=== PATIENT | female | born 1960 | race Caucasian/White ===

== ENCOUNTER 2016-08-06 18:16 | Emergency (ER) | payer MEDICARE ==
[2016-08-06 19:09] LABS: BASOPHILS 0.3 % (0-2); EOSINOPHILS 1.5 % (0-7); HEMATOCRIT 43.6 % (36.0-48.0); HEMOGLOBIN 14.5 g/dL (12-16); IMMATURE GRANULOCYTES 0.2 % (0-5); LYMPHOCYTES 42.9 % (15-50); MCH 31.3 pg (26.0-34.0); MCHC 33.3 g/dL (31.0-37.0); MCV 94.2 fL (80.0-100.0); MEAN PLATELET VOLUME 9.3 fL (7.4-10.4); NEUTROPHILS 48.1 % (40-80); PLATELET COUNT 313 10x3/uL (130-400); RBC 4.63 10x6/uL (4.00-5.40); RDW 13.2 % (11.5-14.5); WBC 9.5 10x3/uL (4.8-10.8)
[2016-08-06 19:14] LABS: UDS - AMPHET NEGATIVE QUAL (NEGATIVE); UDS - BARB NEGATIVE QUAL (NEGATIVE); UDS - BENZO NEGATIVE QUAL (NEGATIVE); UDS - COCAINE NEGATIVE QUAL (NEGATIVE); UDS - METH NEGATIVE QUAL (NEGATIVE); UDS - OPIATE NEGATIVE QUAL (NEGATIVE); UDS - PCP NEGATIVE QUAL (NEGATIVE); UDS - THC NEGATIVE QUAL (NEGATIVE)
[2016-08-06 19:15] LABS: APPEARANCE CLOUDY (CLEAR); COLOR YELLOW (YELLOW); SPECIFIC GRAVITY 1.015 (1.005-1.020)
[2016-08-06 19:16] LABS: LEUKOCYTE ESTERASE TRACE (NEGATIVE); NITRITE NEGATIVE (NEGATIVE)
[2016-08-06 19:17] LABS: BILIRUBIN NEGATIVE (NEGATIVE); GLUCOSE NEGATIVE (NEGATIVE); KETONE NEGATIVE (NEGATIVE); PROTEIN 1+ mg/dL (NEGATIVE); UROBILINOGEN NORMAL (NORMAL)
[2016-08-06 19:19] LABS: RED CELLS - URINE 0-5 /hpf (0-5); WHITE CELLS - URINE 0-5 /hpf (0-5)
[2016-08-06 19:20] LABS: BACTERIA MODERATE /hpf (NONE SEEN); EPITHELIAL CELLS 0-5 /hpf (0-5)
[2016-08-06 19:21] LABS: HYALINE CAST 0-5 /lpf (NONE SEEN)
[2016-08-06 19:24] LABS: ANION GAP 15.9 mmol/L (8-16); BILIRUBIN - TOTAL 0.27 mg/dL (0.2-1.3); CREATININE - SERUM 0.9 mg/dL (0.6-1.3); POTASSIUM - SERUM 3.9 mmol/L (3.5-5.1); PROTEIN - SERUM 7.7 g/dL (6.4-8.2)
== END 2016-08-07 00:21 | disposition short-term general hospital (02) ==
LOC: D.ER 18:16
PROVIDERS: Emergency Medicine
DX: R45.851 Suicidal ideations (principal)

== ENCOUNTER 2016-11-27 13:20 | Emergency (ER) | payer MEDICARE ==
[2016-11-27 14:03] LABS: APPEARANCE HAZY (CLEAR); BILIRUBIN NEGATIVE (NEGATIVE); COLOR YELLOW (YELLOW); GLUCOSE NEGATIVE (NEGATIVE); KETONE NEGATIVE (NEGATIVE); NITRITE NEGATIVE (NEGATIVE); PROTEIN NEGATIVE (NEGATIVE); SPECIFIC GRAVITY 1.015 (1.005-1.020); UROBILINOGEN NORMAL (NORMAL)
[2016-11-27 14:07] LABS: BACTERIA MODERATE /hpf (NONE SEEN); MUCUS <1+ /lpf (NONE SEEN); RED CELLS - URINE 0-5 /hpf (0-5)
[2016-11-27 14:17] LABS: UDS - AMPHET NEGATIVE QUAL (NEGATIVE); UDS - BARB NEGATIVE QUAL (NEGATIVE); UDS - BENZO NEGATIVE QUAL (NEGATIVE); UDS - COCAINE NEGATIVE QUAL (NEGATIVE); UDS - OPIATE NEGATIVE QUAL (NEGATIVE); UDS - PCP NEGATIVE QUAL (NEGATIVE); UDS - THC NEGATIVE QUAL (NEGATIVE)
[2016-11-27 14:27] LABS: BASOPHILS 0.4 % (0-2); EOSINOPHILS 1.4 % (0-7); HEMATOCRIT 41.5 % (36.0-48.0); HEMOGLOBIN 14.2 g/dL (12-16); IMMATURE GRANULOCYTES 0.2 % (0-5); MCH 32.1 pg (26.0-34.0); MCHC 34.2 g/dL (31.0-37.0); MCV 93.7 fL (80.0-100.0); MEAN PLATELET VOLUME 8.6 fL (7.4-10.4); MONOCYTES 7.4 % (2-11); NEUTROPHILS 43.6 % (40-80); RBC 4.43 10x6/uL (4.00-5.40); RDW 12.9 % (11.5-14.5); WBC 8.4 10x3/uL (4.8-10.8)
[2016-11-27 14:28] LABS: PLATELET COUNT 386 10x3/uL (130-400)
[2016-11-27 14:50] LABS: ALBUMIN 3.8 g/dL (3.4-5.0); ALKALINE PHOSPHATASE 86 U/L (46-116); ALT (SGPT) 55 U/L (10-68); BILIRUBIN - TOTAL 0.27 mg/dL (0.2-1.3); CALC OSMOLALITY 259 mosm/kg (275-300); CALCIUM 9.1 mg/dL (8.5-10.1); CARBON DIOXIDE 26.3 mmol/L (21.0-32.0); CHLORIDE - SERUM 99 mmol/L (98-107); CREATININE - SERUM 0.7 mg/dL (0.6-1.3); GLUCOSE 118 mg/dL (74-106); POTASSIUM - SERUM 3.7 mmol/L (3.5-5.1); PROTEIN - SERUM 7.7 g/dL (6.4-8.2); SODIUM 130 mmol/L (136-145); UREA NITROGEN 7 mg/dL (7-18); eGFR NON AFRICAN AMERICAN > 90 mL/min (90-120)
[2017-03-18] MEDS ORDERED: DELSYM30 MG/5 M1 PO (07:16)
[2017-03-18] MEDS ORDERED: NEURONTIN800 MG PO (07:17)
[2017-03-18] MEDS ORDERED: ABILIFY10 MG PO (07:17)
[2017-03-18] MEDS ORDERED: SEROQUEL400 MG PO (07:17)
[2017-03-18] MEDS ORDERED: VASERETIC 10-251 TAB PO (07:18)
[2017-03-18] MEDS ORDERED: TOPROL XL50 MG PO (07:18)
[2017-03-18] MEDS ORDERED: KLONOPIN1 MG PO (07:19)
[2017-03-18] MEDS ORDERED: OMEPRAZOLE20 M1 PO (07:19)
[2017-03-18 07:56] VITALS: BMI 39.2
== END 2016-11-27 17:57 | disposition short-term general hospital (02) ==
LOC: D.ER 13:20
PROVIDERS: Emergency Medicine
DX: R45.851 Suicidal ideations (principal); F33.9 Major depressive disorder, recurrent, unspecified; N76.0 Acute vaginitis; F17.200 Nicotine dependence, unspecified, uncomplicated

== ENCOUNTER 2016-11-27 23:37 | Emergency (ER) | payer MEDICARE ==
[2016-11-28 00:22] LABS: BASOPHILS 0.2 % (0-2); EOSINOPHILS 1.3 % (0-7); HEMATOCRIT 43.4 % (36.0-48.0); HEMOGLOBIN 14.7 g/dL (12-16); IMMATURE GRANULOCYTES 0.5 % (0-5); LYMPHOCYTES 42.6 % (15-50); MCH 31.7 pg (26.0-34.0); MCHC 33.9 g/dL (31.0-37.0); MCV 93.5 fL (80.0-100.0); MEAN PLATELET VOLUME 9.5 fL (7.4-10.4); MONOCYTES 7.4 % (2-11); RBC 4.64 10x6/uL (4.00-5.40); RDW 12.9 % (11.5-14.5); WBC 8.4 10x3/uL (4.8-10.8)
[2016-11-28 00:23] LABS: PLATELET COUNT 147 10x3/uL (130-400)
[2016-11-28 00:33] LABS: ALBUMIN 3.6 g/dL (3.4-5.0); ALKALINE PHOSPHATASE 82 U/L (46-116); ALT (SGPT) 51 U/L (10-68); CALC OSMOLALITY 256 mosm/kg (275-300); CALCIUM 8.7 mg/dL (8.5-10.1); CARBON DIOXIDE 26.5 mmol/L (21.0-32.0); CHLORIDE - SERUM 95 mmol/L (98-107); CREATININE - SERUM 0.6 mg/dL (0.6-1.3); GLUCOSE 113 mg/dL (74-106); POTASSIUM - SERUM 4.3 mmol/L (3.5-5.1); PROTEIN - SERUM 7.3 g/dL (6.4-8.2); SODIUM 128 mmol/L (136-145); UREA NITROGEN 9 mg/dL (7-18); eGFR NON AFRICAN AMERICAN > 90 mL/min (90-120)
[2016-11-28 00:40] LABS: CKMB 0.7 U/L (0.0-3.6); CREATINE KINASE 158 UL (21-215)
[2016-11-28 00:41] LABS: TROPONIN-I < 0.017 ng/mL (0.000-0.060)
[2016-11-28 02:07] LABS: APPEARANCE CLEAR (CLEAR); COLOR YELLOW (YELLOW)
[2016-11-28 02:08] LABS: BILIRUBIN NEGATIVE (NEGATIVE); GLUCOSE NEGATIVE (NEGATIVE); KETONE NEGATIVE (NEGATIVE); NITRITE NEGATIVE (NEGATIVE); PROTEIN NEGATIVE (NEGATIVE); SPECIFIC GRAVITY 1.005 (1.005-1.020); UROBILINOGEN NORMAL (NORMAL)
[2017-03-18] MEDS ORDERED: DELSYM30 MG/5 M1 PO (07:16)
[2017-03-18] MEDS ORDERED: ABILIFY10 MG PO (07:17)
[2017-03-18] MEDS ORDERED: SEROQUEL400 MG PO (07:17)
[2017-03-18] MEDS ORDERED: NEURONTIN800 MG PO (07:17)
[2017-03-18] MEDS ORDERED: VASERETIC 10-251 TAB PO (07:18)
[2017-03-18] MEDS ORDERED: TOPROL XL50 MG PO (07:18)
[2017-03-18] MEDS ORDERED: KLONOPIN1 MG PO (07:19)
[2017-03-18] MEDS ORDERED: OMEPRAZOLE20 M1 PO (07:19)
[2017-03-18 07:56] VITALS: BMI 39.2
== END 2016-11-28 06:09 | disposition home or self-care (01) ==
LOC: D.ER 23:37
PROVIDERS: Family Medicine
DX: I95.9 Hypotension, unspecified (principal); Z76.0 Encounter for issue of repeat prescription; F17.200 Nicotine dependence, unspecified, uncomplicated; I44.0 Atrioventricular block, first degree

== ENCOUNTER 2017-03-18 07:34 | Outpatient (CLI) | payer MEDICARE ==
[~2017-03-18] VITALS: Ht 170.2 cm; Wt 113.6 kg
--- NOTE | ~2017-03-18 | HEMODYNAMI ---
PATIENT:ANDERSON LITTLE MEDICAL RECORD: [id number] : 64 LOCATION:[facility] ADMISSION DATE: 03/18/17 Generatedon:03/18/20179:06 Patient name: ANDERSON LITTLE Patient #: [id number] SSN: DO B: 1960 Date of study: 03/18/2017 Page: Of Hemodynamic Procedure Report Patient Data Patient Demographics Procedure consent was obtained First Name: ANDERSON Gender: Female Last Name: ANABEL : 1960 [facility] Initial: L Age: 56 year(s) Patient #: [id number] Race: Additional ID: [id number] Contact details Address: [address] [place] [address] State: [place] City: [facility] Zip code: [address] Past Medical History Allergies: No known allergies Admission Admission Data Admission Date: 03/18/2017 Admission Time: 7:34 Arrival Date: 03/18/2017 Arrival Time: 0:00 Admit Source: Other Procedure Procedure Types Cath Procedure Diagnostic Procedure C LH w/Coronaries Miscellaneous Procedures Moderate Sedation up to 30 minutes Procedure Description Procedure Date Procedure Date: 03/18/2017 Procedure Start Time: 8:53 Procedure End Time: 9:06 Procedure Staff Name Function Kevin Hernandez MD Performing Physician Genevieve Harris RT Scrub Yelena Price RT Monitor Ti Jj RN Nurse Procedure Data Cath Procedure Fluoroscopy Diagnostic fluoroscopy Total fluoroscopy Time: 1.7 time: 1.7 min min Diagnostic fluoroscopy Total fluoroscopy dose: 362 dose: 362 mGy mGy Contrast Material Contrast Material Type Amount (ml) Isovue 300 39 Entry Location Entry Primary Successful Side Size Upsize Upsize Entry Closure Succes sful Closure Location (Fr) 1 (Fr) 2 (Fr) Remarks Device Remarks Femoral Right 5 Fr Exoseal artery Estimated blood loss: 5 ml Diagnostic catheters Device Type Used For End Catheter Placement MULTIPACK JL 4.0 5Fr Left Coronary catheter Angiography MULTIPACK 3DRC 5Fr Right Coronary catheter Angiography MULTIPACK Pigtail 5 Fr LV Angiography catheter Procedure Complications No complications Procedure Medications Medication Administration Route Dosage 0.9% NaCl I.V. 100 ml/hr Heparin Flush Bag added to field 2 bags (1000units/500ml NS) Lidocaine 2% added to field 20 Versed I.V. 2 mg Fentanyl I.V. 25 mcg Hemodynamics Rest Heart Rate: 73 (bpm) Pressure Samples Time Site Value (mmHg) Purpose Heart Use Rate(bpm) 9:01 LV 117/7,22 EDP 74 Gradients Valve Time Site Site Mean SEP/DFP Peak To Heart Use 1 2 (mmHg) (sec/min) Peak Rate (mmHg) (bpm) Aortic 9:01 LV AO 82 Snapshots Pre Cath Intra NCS Post Cath Vital Signs Time Heart Resp SPO2 etCO2 NIBP (mmHg) Rhythm Pain Sedation Rate (ipm) (%) (mmHg) Status Level (bpm) 8:41:43 72 20 98 35.7 137/84(110) NSR 0 (11) 10(A) , No pain 8:46:36 71 17 96 37.2 135/82(116) NSR 0 (11) 10(A) , No pain 8:51:24 73 17 96 43.3 124/88(104) NSR 0 (11) 10(A) , No pain 8:56:13 73 12 93 0 118/73(90) NSR 0 (11) 9(A) , No pain 9:01:04 74 12 93 3 116/65(87) NSR 0 (11) 9(A) , No pain 9:05:53 73 10 92 0 120/71(91) NSR 0 (11) 9(A) , No pain Medications Time Medication Route Dose Verified Delivered Reason Notes Effec tiveness by by 8:40:42 0.9% NaCl I.V. 100 Ti Ti Per ml/hr Анна Jj physician RN RN 8:44:01 Heparin Flush added 2 Ti Ti used for Bag to bags Анна Jj procedure (1000units/500ml field RN RN NS) 8:44:14 Lidocaine 2% added 20ml Ti Ti for local to vial Lorigan Lorigan anesthetic field RN RN 8:49:00 Versed I.V. 2 mg Ti Ti for Lorigan Lorigan sedation RN RN 8:49:10 Fentanyl I.V. 25 Ti Ti for mcg Lorigan Lorigan sedation RN cryptography teacher Log Time Note 8:26:20 Yelena Price RT(R) sent for patient. Start room use. 8:26:21 Time tracking: Regular hours 8:26:24 Plan of Care:Hemodynamics will remain stable., Cardiac rhythm will remain stable., Comfort level will be maintained., Respiratory function will remain adequate., Patient/ family verbilizes understanding of procedure., Procedure tolerated without complication., Recovers from procedure without complications.. 8:30:20 Diagnostic Cath Status : Elective 8::26 Informed consent obtained and on chart 8:30:30 Admit Source: Other 8:30:34 Arrival Date: 03/18/2017 12:00:00 AM 8:33:11 Patient received from Pre/Post Procedure Room to CCL 1 Alert and oriented. Tansferred to table in Supine position. 8:33:13 Warm blankets applied, and monico hugger turned on for patient comfort. 8:33:14 Correct patient and procedure confirmed by team. 8:33:15 ECG and BP/O2 sat monitors applied to patient. 8:40:38 Vital chart was started 8:40:40 Rhythm: sinus rhythm 8:40:42 0.9% NaCl 100 ml/hr I.V. was administered by Ti Jj RN; Per physician; 8:41:05 Full Disclosure recording started 8:41:14 H&P Date Dictated: 03/10/2017 Within 30 days and on chart., H&P Addendum completed by physician on day of procedure. (MUST COMPLETE FOR ALL OUTPATIENTS). 8:41:15 Pre-procedure instructions explained to patient. 8:41:15 Pre-op teaching completed and patient verbalized understanding. 8:41:16 Family in waiting room. 8:41:18 Patient NPO since Midnight. 8:41:27 Patient allergic to No known allergies 8:41:30 Is the patient allergic to Iodine/contrast media? No. 8:41:35 Is patient on blood thinner?Yes 8:41:36 ACC The patient was administered the following blood thiners within the last 24 hours: ACCPlavix 8:41:38 Patient diabetic? No. 8:41:40 Previous problem with sedation/anesthesia? No ? 8:41:41 Snore? No 8:41:42 Sleep apnea? No 8:41:43 Deviated septum? No 8:41:44 Opens mouth fully? Yes 8:41:45 Sticks out tongue? Yes 8:41:46 Airway obstruction? No ? 8:41:48 Dentures? No ? 8:41:50 Pre procedure: right dorsailis pedis pulse 1+ Palpable, but thready & weak; easily obliterated 8:42:01 Pre procedure: right radial pulse 1+ Palpable, but thready & weak; easily obliterated 8:42:04 Patient pain scale 0/10 ?. 8:42:07 IV patent on arrival in left hand with 0.9% NaCl at [facility]. 8:42:09 Lab results completed and on chart. 8:42:14 Right groin area was prepped with chlora-prep and draped in sterile fashion 8:42:15 Alarms reviewed by R. N. 8:42:16 Sharps counted by scrub and verified by R.N. 8:44:01 Heparin Flush Bag (1000units/500ml NS) 2 bags added to field was administered by Ti Jj RN; used for procedure; 8:44:14 Lidocaine 2% 20ml vial added to field was administered by Ti Jj RN; for local anesthetic; 8:45:22 Final Timeout: patient, procedure, and site verified with staff and physician. All members of the team are in agreement. 8:45:24 Right groin site verified by team. 8:45:27 Physical assessment completed. ASA score P 2 - A patient with mild systemic disease as per Kevin Hernandez MD. 8:45:30 Sedation plan: IV Moderate Sedation Medication:Versed, Fentanyl 8:48:01 Baseline sample Acquired. 8:49:00 Versed 2 mg I.V. was administered by Ti Jj RN; for sedation; 8:49:10 Fentanyl 25 mcg I.V. was administered by Ti Jj RN; for sedation; 8:52:10 Zero performed for pressure channel P1 8:52:26 Zero performed for pressure channel P1 8:52:59 Procedure started. 8:53:02 Local anesthetic to right femoral artery with Lidocaine 2% by Kevin Hernandez MD.INITIAL ACCESS ONLY 8:54:49 A 5 Fr sheath was inserted into the Right Femoral artery 8:56:04 Use device set Femoral Dx 8:56:05 ACIST Syringe (16932) opened to sterile field. 8:56:06 Bag Decanter (2002S) opened to sterile field. 8:56:06 Medline Cath Pack ([id number]) opened to sterile field. 8:56:06 SHEATH 5FR Vansant ([id number]) opened to sterile field. 8:56:07 DIAGNOSTIC WIRE .035 260cm J wire (301587) opened to sterile field. 8:56:08 ACIST Hand Control (66108) opened to sterile field. 8:56:09 ACIST Manifold (54015) opened to sterile field. 8:56:09 DIAGNOSTIC Multipack 5Fr catheter set (WQ3759) opened to sterile field. 8:56:10 Tegaderm 4 x 4 (1626W) opened to sterile field. 8:56:14 MICROPUNCTURE 4FR CrowdStrike ([id number]) opened to sterile field. 8:56:19 A MULTIPACK JL 4.0 5Fr catheter was advanced over the wire and used for Left Coronary Angiography. 8:57:55 Catheter removed. 8:58:29 A MULTIPACK 3DRC 5Fr catheter was advanced over the wire and used for Right Coronary Angiography. 8:59:22 Catheter removed. 8:59:30 A MULTIPACK Pigtail 5 Fr catheter was advanced over the wire and used for LV Angiography. 9:01:20 LV gram done using RUFFIN 9:01:21 LV hemodynamics recorded. 9:01:24 Injector settings: Ml/sec: 12, Volume: 8, 9:01:53 Catheter removed. 9:02:00 Sheath removed intact; hemostasis achieved with Exoseal to the Right Femoral artery. 9:02:02 Procedure ended.(Physican Out) 9:02:13 EXOSEAL 5Fr (EX500) opened to sterile field. 9:04:07 Fluoroscopy time 01.70 minutes. 9:04:13 Fluoroscopy dose: 362 mGy 9:04:13 Flurop Dose total: 362 9:04:17 Contrast amount:Isovue 300 39ml. 9:04:19 Sharps counted by scrub and verified by R.N. 9:04:20 Insertion/operative site no bleeding no hematoma. 9:04:23 Post-op/insertion site Right Femoral artery dressed using a 4 x 4 and Tegaderm. 9:04:26 Post right femoral artery:stable, clean and dry 9:04:28 Post Procedure Pulses reassessed and unchanged 9:04:31 Post-procedure physical assessment completed. ASA score P 2 - A patient with mild systemic disease as per Kevin Hernandez MD. 9:04:33 Post procedure rhythm: unchanged. 9:04:35 Estimated blood loss: 5 ml 9:04:36 Post procedure instruction explained to patient.Patient verbalizes understanding. 9:04:37 Patient needs reinforcement of post procedure teaching. 9:04:49 Procedure type changed to Cath procedure, Diagnostic procedure, LHC, LHC w/Coronaries, Miscellaneous Procedures, Moderate Sedation up to 30 minutes 9:04:55 Procedure Complication : No complications 9:04:57 See physician's report for complete and final results. 9:05:21 Procedure and supply charges have been captured, reviewed, submitted and are correct. 9:06:26 Vital chart was stopped 9:06:28 Report given to Pre/Post Procedure Room. 9:06:30 Patient transfered to Pre/Post Procedure Room with Stretcher. 9:06:38 Procedure ended. 9:06:38 Full Disclosure recording stopped 9:06:42 End room use (Document Last) Device Usage Item Name Manufacture Quantity Catalog Hospital Part Current Minimal Lot# / Number Charge Number Stock Stock Serial# Code ACIST Syringe Acist 1 85782 579876 394006 653035 20 (96455) Medical Systems Inc Bag Decanter Microtek 1 2001S 968768 42184 710265 5 () Medical Inc. Medline Cath Cardinal 1 [id number] 806838 01204 883916 5 Pack Health ([id number]) SHEATH 5FR Terumo 1 HHX685 279456 885068 915238 40 Vansant (BKZ166) DIAGNOSTIC St Armin 1 726444 400553 348702 381018 30 WIRE .035 260cm J wire (837902) ACIST Hand Acist 1 72323 556204 697735 982513 5 Control Medical (98385) Systems Inc ACIST Acist 1 73178 069115 343713 871001 5 Manifold Medical (66889) Systems Inc DIAGNOSTIC Cardinal 1 PG4841 436350 96755 645171 30 Multipack 5Fr Health catheter set (EH2211) Tegaderm 4 x 3M 1 1626W 086400 223848 080915 5 4 (1626W) MICROPUNCTURE Cook Medical 1 X82592 159395 131258 899689 5 4FR Cook (B79748) MULTIPACK JL Cardinal 1 139956 5 4.0 5Fr Health catheter MULTIPACK Cardinal 1 647595 5 3DRC 5Fr Health catheter MULTIPACK Cardinal 1 448996 5 Pigtail 5 Fr Health catheter EXOSEAL 5Fr Cardinal 1 EX500 559735 894635 741599 10 (EX500) Health Signature Audit Aurora Stage Time Signature Unsigned Intra-Procedure 03/18/2017 Yelena 9:06:55 AM Counts RT(R) Signatures Monitor : Yelena Signature : Counts RT Date : Time : [address] [address]
[~2017-03-18 07:34] MED LIST: ABILIFY10 MG PO; DELSYM30 MG/5 M1 PO; KLONOPIN1 MG PO; NEURONTIN800 MG PO; OMEPRAZOLE20 M1 PO; SEROQUEL400 MG PO; TOPROL XL50 MG PO; VASERETIC 10-251 TAB PO
[2017-03-18 07:54] LABS: BASOPHILS 0.2 % (0-2); EOSINOPHILS 1.6 % (0-7); HEMATOCRIT 41.9 % (36.0-48.0); HEMOGLOBIN 14.3 g/dL (12-16); IMMATURE GRANULOCYTES 0.2 % (0-5); LYMPHOCYTES 39.4 % (15-50); MCH 32.1 pg (26.0-34.0); MCHC 34.1 g/dL (31.0-37.0); MCV 93.9 fL (80.0-100.0); MEAN PLATELET VOLUME 8.4 fL (7.4-10.4); NEUTROPHILS 51.6 % (40-80); RBC 4.46 10x6/uL (4.00-5.40); RDW 12.5 % (11.5-14.5); WBC 9.4 10x3/uL (4.8-10.8)
[2017-03-18 07:56] VITALS: BP 132/84; Ht 170.2 cm; Wt 113.6 kg
[2017-03-18 08:04] LABS: CALC OSMOLALITY 259 mosm/kg (275-300); CALCIUM 9.6 mg/dL (8.5-10.1); CARBON DIOXIDE 30.9 mmol/L (21.0-32.0); CHLORIDE - SERUM 92 mmol/L (98-107); CREATININE - SERUM 0.8 mg/dL (0.6-1.3); GLUCOSE 123 mg/dL (74-106); POTASSIUM - SERUM 3.8 mmol/L (3.5-5.1); SODIUM 130 mmol/L (136-145); UREA NITROGEN 8 mg/dL (7-18); eGFR NON AFRICAN AMERICAN 79 mL/min (90-120)
[2017-03-18 08:07] LABS: PLATELET COUNT 333 10x3/uL (130-400)
== END 2017-03-18 12:25 | disposition home or self-care (01) ==
LOC: D.CATH 07:34
PROVIDERS: Internal Medicine Cardiovascular Disease
DX: I25.10 Atherosclerotic heart disease of native coronary artery without angina pectoris (principal); R94.39 Abnormal result of other cardiovascular function study; Z01.812 Encounter for preprocedural laboratory examination

== ENCOUNTER 2017-05-07 08:20 | Day surgery (SDC) | payer MEDICARE ==
[2017-05-06 13:03] LABS: HEMATOCRIT 40.3 % (36.0-48.0); HEMOGLOBIN 13.5 g/dL (12-16); MCH 31.3 pg (26.0-34.0); MCHC 33.5 g/dL (31.0-37.0); MCV 93.3 fL (80.0-100.0); MEAN PLATELET VOLUME 8.4 fL (7.4-10.4); RBC 4.32 10x6/uL (4.00-5.40); WBC 8.1 10x3/uL (4.8-10.8)
[2017-05-06 13:20] LABS: CALC OSMOLALITY 263 mosm/kg (275-300); CALCIUM 9.1 mg/dL (8.5-10.1); CARBON DIOXIDE 26.2 mmol/L (21.0-32.0); CHLORIDE - SERUM 94 mmol/L (98-107); CREATININE - SERUM 0.7 mg/dL (0.6-1.3); GLUCOSE 116 mg/dL (74-106); POTASSIUM - SERUM 3.8 mmol/L (3.5-5.1); SODIUM 132 mmol/L (136-145); UREA NITROGEN 8 mg/dL (7-18); eGFR NON AFRICAN AMERICAN > 90 mL/min (90-120)
[~2017-05-07] VITALS: Ht 170.2 cm; Wt 113.6 kg
--- NOTE | ~2017-05-07 | OP ---
PATIENT NAME: ANDERSON LITTLE MEDICAL RECORD: [id number] :64 LOCATION:D.[id number] ADMISSION DATE: SURGEON: INNA MARTINES MD DATE OF OPERATION: 05/07/2017 PREOPERATIVE DIAGNOSIS: Symptomatic umbilical hernia. POSTOPERATIVE DIAGNOSES: 1. Symptomatic incarcerated umbilical hernia. 2. Hepatomegaly, rule out fatty infiltration versus cirrhosis. PROCEDURES: 1. Laparoscopic incarcerated umbilical hernia repair with Ventralight ST mesh, 4 inches x 6 inches. 2. An 18-gauge core needle liver biopsy. SURGEON: Inna Martines MD PHOTOLITHOGRAPHER: None. BLOOD LOSS: Minimal. ANESTHESIA: General. COMPLICATIONS: None. The risks, possible complications and alternatives to the procedure were explained to the patient. She elects to proceed. OPERATIVE COURSE: The patient was conveyed to the operating room electively on 05/07/2017. General anesthesia was induced by the anesthesia staff. The abdomen was sterilely prepped and draped. A skin incision was accomplished in the left upper quadrant. Through the skin incision, I advanced a Veress needle. CO2 insufflation was begun. Once a sufficient pneumoperitoneum had been achieved, a 5-mm trocar was inserted under direct vision in the left lower quadrant. Two 5-mm trocars were inserted under direct vision in the right side of the abdomen. I noted incarcerated omentum within the umbilical hernia. The indication for the liver biopsy was hepatomegaly. Under laparoscopic guidance, I advanced an 18-gauge core needle liver biopsy device and obtained cores of the liver over its convexity. The biopsy sites were made hemostatic with the electrocautery. Utilizing the Harmonic scalpel, I took down the falciform ligament. I then took down the anterior portion of the triangular ligament of the liver. I then removed some of the preperitoneal fat with the Harmonic scalpel. I reduced the umbilical hernia contents with the Harmonic scalpel. A pre-vesicular flap was created with the Harmonic scalpel. Intravenous methylene blue was given. I noted no spillage of methylene blue and therefore, no evidence of a bladder injury. Through the 12-mm trocar, I advanced a well-hydrated Ventralight ST mesh. An incision was accomplished over the hernia defect. I advanced a laparoscopic suture passer through this small skin manas. I grasped the tail of the Ventralight ST mesh. I cut the tubing, attached it to the inflation device and then inflated the mesh. I then oriented it in the proper orientation with the OPERATIVE REPORT [id number] ANDERSON LITTLE long axis being in the cephalad caudad direction. Utilizing the OptiFix device, I tacked around the edges of the mesh in order to stabilize it. The herniorrhaphy was then completed with circumferential tacking utilizing the SorbaFix device. The inflation device was removed in its entirety. There was no bleeding even at low pressure of 8. Utilizing the Shelton-Deanna suture closure device and a 0 Vicryl suture, I closed the muscle at the 12-mm trocar site. All the trocars were removed and the abdomen desufflated. The skin incision at the umbilicus was closed with a single 4-0 Vicryl Rapide suture. The other skin incisions were closed with interrupted intracuticular 3-0 and 4-0 Vicryls. Benzoin and Steri-Strips were applied as well as pressure dressing at the umbilicus. The patient was then extubated and conveyed to the post-anesthesia care unit where she was in stable condition. My plan is that she will be dismissed home on hydrocodone as well as Colace. I will see her in the office in 2-3 weeks. TRANSINT:[id number] Voice Confirmation ID: [id number] DOCUMENT ID: [id number] INNA MARTINES MD at 1607 CC: LORENZO MANNING [id number] DICTATION DATE: 05/07/17 1258 STRUCTURAL ANALYSIS ENGINEER: 05/07/17 [address] [place] [address]
[2017-05-07 09:14] VITALS: BP 113/71; BMI 39.2
[2017-05-07 11:27] LABS: HCG SERUM NEGATIVE (NEGATIVE)
[2017-05-07 15:50] VITALS: BP 112/56
[2017-05-07 17:07] VITALS: BP 112/56; Ht 170.2 cm; Wt 113.6 kg
[2017-05-07 23:02] VITALS: BP 113/72
[2017-05-08 02:45] VITALS: BP 130/78
[2017-05-08 04:32] VITALS: BP 132/79
[2017-05-08 08:20] VITALS: BP 153/69
[2017-05-08] MEDS ORDERED: HYDROCODON-ACE1 EAC7 PO (11:11)
[2017-05-08] MEDS ORDERED: COLACE100 MG PO (11:12)
== END 2017-05-08 14:07 | disposition home or self-care (01) ==
LOC: D.OPS 08:20 → D.MS 08:20 → D.PAN 10:15 → D.OPS 11:30 → D.MS 15:10 → D.OPS 05-08 14:07
PROVIDERS: Anesthesiology
DX: K42.9 Umbilical hernia without obstruction or gangrene (principal); R16.0 Hepatomegaly, not elsewhere classified; F17.200 Nicotine dependence, unspecified, uncomplicated; I10 Essential (primary) hypertension; J44.9 Chronic obstructive pulmonary disease, unspecified; K21.9 Gastro-esophageal reflux disease without esophagitis; Z01.812 Encounter for preprocedural laboratory examination

== ENCOUNTER → 2018-03-29 17:50 | Outpatient (CLI) | payer MEDICARE ==
[2017-05-07 17:07] VITALS: BMI 39.2
[~2018-03-29 17:50] MED LIST changes: +COLACE100 MG PO; +HYDROCODON-ACE1 EAC7 PO
== END | disposition home or self-care (01) ==
LOC: D.MAMMO 14:30
DX: Z12.31 Encounter for screening mammogram for malignant neoplasm of breast (principal)

== ENCOUNTER → 2019-10-24 19:08 | Outpatient (CLI) | payer MEDICARE ==
[2017-05-07 17:07] VITALS: BMI 39.2
== END | disposition home or self-care (01) ==
LOC: D.LABREF 19:08
PROVIDERS: ATTEND Orthopaedic Surgery
DX: M17.12 Unilateral primary osteoarthritis, left knee (principal)

== ENCOUNTER 2019-10-30 13:43 | Inpatient (IN) | payer MEDICARE ==
[~2019-10-30] VITALS: Ht 165.1 cm; Wt 113.4 kg
[2019-11-14] MEDS ORDERED: AMITRIPTYLINE H50 MG PO (14:38)
[2019-11-14] MEDS ORDERED: LIPITOR10 MG PO (14:54)
[2019-11-15 10:09] LABS: BASOPHILS 0.1 % (0-2); EOSINOPHILS 2.3 % (0-7); HEMATOCRIT 37.7 % (36.0-48.0); HEMOGLOBIN 12.2 g/dL (12-16); IMMATURE GRANULOCYTES 0.1 % (0-5); LYMPHOCYTES 42.3 % (15-50); MCH 30.8 pg (26.0-34.0); MCHC 32.4 g/dL (31.0-37.0); MCV 95.2 fL (80.0-100.0); MEAN PLATELET VOLUME 8.5 fL (7.4-10.4); MONOCYTES 7.9 % (2-11); NEUTROPHILS 47.3 % (40-80); RBC 3.96 10x6/uL (4.00-5.40); RDW 12.9 % (11.5-14.5); WBC 7.1 10x3/uL (4.8-10.8)
[2019-11-15 10:17] LABS: PLATELET COUNT 240 10x3/uL (130-400)
[2019-11-15 10:20] LABS: APTT 28.8 SECONDS (22.8-39.4); INR 1.01 (0.85-1.17); PROTIME 13.2 SECONDS (11.6-15.0)
[2019-11-15 10:21] LABS: ANION GAP 9.2 mmol/L (8-16); CALCIUM 9.2 mg/dL (8.5-10.1); CARBON DIOXIDE 29.8 mmol/L (21.0-32.0)
[2019-11-15 10:48] LABS: BILIRUBIN NEGATIVE (NEGATIVE); KETONE NEGATIVE (NEGATIVE); NITRITE NEGATIVE (NEGATIVE); UROBILINOGEN NORMAL mg/dL (< 2)
[2019-11-15 10:49] LABS: BACTERIA MODERATE /HPF (NONE SEEN); EPITHELIAL CELLS 0-5 /hpf (0-5); WHITE CELLS - URINE 0-5 HPF (0-4)
[2019-11-16] MEDS ORDERED: BUPROPION HCL100 M1 PO (09:24)
[2019-11-21] VITALS (10 sets, daily range): BP systolic 80–138; BP diastolic 43–87; BMI 41.6
[2019-11-21] MEDS ORDERED: CIPRO500 MG PO (13:26)
--- NOTE | 2019-11-21 14:13 | NUR ---
[facility] DID NOT MAKE IT UP FOR EVALUATION UNTIL AFTER PATIENT LEFT FOR SURGERY. ADVISED SHE WOULD BE ADMITTED AND THEY WOULD NEED TO DO IT ON THE ORTHO FLOOR. PATIENT STATES SHE IS NOT SUICIDAL AND IS IN TREATMENT FOR DEPRESSION.
--- NOTE | 2019-11-21 14:28 | NUR ---
THROUGH TRAFFIC KEPT TO A MINIMUM. HIBACLENS AND ALCOHOL USED TO CLEAN BEFORE PREPPING. STERILE GOWNED AND GLOVED TO PREP ENTIRE LEFT LEG.
--- NOTE | 2019-11-21 17:05 | NUR ---
PATIENT ADMITTED TO ROOM 1208. VITALS STABLE. DENIES NEEDS. BED LOW. CALL PELLETIER AND PERSONAL ITEMS IN REACH. BROTHER AT BEDSIDE.
--- NOTE | 2019-11-21 17:32 | NUR ---
PATIENT BP STILL LOW AT 102/68. GIVEN PRN TORADOL AND VISTARIL.
--- NOTE | 2019-11-21 17:33 | MORECARE ---
CASE MANAGEMENT DISCHARGE SUMMARY PATIENT: ANDERSON RETANA UNIT: [id number] ADM DATE: 11/21/19 AGE: 59 : 64 SEX: F ROOM/BED: D.1208 AUTHOR: CHETNA THOMAS PHYSICIAN: REFERRING PHYSICIAN: SAMANTHA SALMON DO DATE OF SERVICE: 11/21/19 Discharge Plan Patient Name: ANDERSON RETANA Facility: [facility]:[place] : 1960 Planned Disposition: Inpatient Rehab Anticipated Discharge Date: Discharge Date: Expected LOS: Initial Reviewer: [email or web address] Initial Review Date: 11/21/2019 Generated: 11/21/19 6:32 pm DCP- Discharge Planning Updated by [email or web address]: Milagros Landa on 11/21/19 4:[address] DC Plan: [facility]. CM met with patient to discuss initial discharge planning. Patient is in agreement to proceed, with her brother present. Patient reports that she lives at home independently, with her family. Patient states there are several grandchildren at her home, feels it would not be a safe DC plan to return there and would like to go into rehab. Patient is alert/oriented. PCP: Dr. Gil. Pharmacy: [facility]. HHS: [facility]. DME: To be delivered: TAMIA, Salvador, BSC. Patient gives permission to speak with family members/care givers. Emergency contact: Harshad Retana (brother), . 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 CM discussed the availability of HH, Rehab, SNF, OP Therapy, DME services. Patient states she needs rehab, but not an intensive one. Patient's choice, with her brother's assist, is [facility]. After the patient goes through rehab, she states she will DC to her mother's home. Patient denies hospitalization within the past 30 days. Patient denies the use of community resources BANK SALES AND SERVICE MANAGER. Transportation at time of discharge: Facility or brother. CM will follow and assist with further DC plans PRN. External Providers External Provider: [facility] Next Contact Date: Service Request Date: Service Type: Resolution: Reviewer: Comments: Patient Name: ANDERSON RETANA Page [phone] at 1733 All edits/amendments must be made on the electronic document DICTATION DATE: 11/21/191731 DONKEY ENGINE FIRER/FIREMAN: SON 11/21/191731 RPT#: [id number] DC DATE: STATUS: ADM IN [facility] [address] [place] [address] END OF REPORT
--- NOTE | 2019-11-21 17:41 | MORECARE ---
CASE MANAGEMENT DISCHARGE SUMMARY PATIENT: ANDERSON RETANA UNIT: [id number] ADM DATE: 11/21/19 AGE: 59 : 64 SEX: F ROOM/BED: D.1208 AUTHOR: CHETNA THOMAS PHYSICIAN: REFERRING PHYSICIAN: SAMANTHA SALMON DO DATE OF SERVICE: 11/21/19 Discharge Plan Patient Name: ANDERSON RETANA Facility: [facility]:[place] : 1960 Planned Disposition: Inpatient Rehab Anticipated Discharge Date: Discharge Date: Expected LOS: Initial Reviewer: [email or web address] Initial Review Date: 11/21/2019 Generated: 11/21/19 6:41 pm DCP- Discharge Planning Updated by [email or web address]: Milagros Landa on 11/21/19 4:[address] DC Plan: [facility]. CM met with patient to discuss initial discharge planning. Patient is in agreement to proceed, with her brother present. Patient reports that she lives at home independently, with her family. Patient states there are several grandchildren at her home, feels it would not be a safe DC plan to return there and would like to go into rehab. Patient is alert/oriented. PCP: Dr. Gil. Pharmacy: [facility]. HHS: [facility]. DME: To be delivered: TAMIA, Salvador, BSC. Patient gives permission to speak with family members/care givers. Emergency contact: Harshad Retana (brother), . Patient is Independent with all ADL's, medication management PROGRAM AIDE. CM discussed the availability of HH, Rehab, SNF, OP Therapy, DME services. Patient states she needs rehab, but not an intensive one. Patient's [facility], with her brother's assist[facility]. After the patient goes through rehab, she states she will DC to her mother's home. Patient denies hospitalization within the past 30 days. Patient denies the use of community resources PROGRAM AIDE. Transportation at time of discharge: Facility or brother. CM will follow and assist with further DC plans PRN. Coverage Notice Reviewer: [email or web address] - Milagros Landa Notice Issued Date-Time: 11/21/2019 17:38 Notice Type: Patient Choice Letter Notice Delivered To: Patient Relationship to Patient: Self Regional Business Manager Name: Anderson Retana Delivery Method: HAND - Hand Delivered April Days: Prior Verbal Notification: Recipient Understood Notice: Recipient Signature: Yes Med Rec Note Co-signed by Attending: Coverage Notice Comment: Patient choice for [facility] Last DP export: 11/21/19 4:33 p Patient Name: ANDERSON RETANA Page [phone] at 1741 All edits/amendments must be made on the electronic document DICTATION DATE: 11/21/191740 COPPER MINER: SON 11/21/191740 RPT#: [id number] DC DATE: STATUS: ADM IN [facility] [address] [place] [address] END OF REPORT
--- NOTE | 2019-11-21 18:05 | NUR ---
CPM MACHINE PLACED ON PATIENT.
--- NOTE | 2019-11-21 19:32 | NUR ---
PATIENT RESTING IN BED WITH NO S/S OF DISTRESS AND DENIES NEEDS AT THIS TIME. BROTHER AT BEDSIDE. BED IN LOWEST POSITION AND CALL LIGHT WITHIN REACH. ENCOURAGED THE PATIENT TO CALL IF SHE HAS NEEDS. WILL CONTINUE TO MONITOR.
--- NOTE | 2019-11-21 20:58 | NUR ---
ADMINISTERED MEDS PER ORDERS. PATIENT DENIES OTHER NEEDS. WILL CONTINUE TO MONITOR.
[2019-11-22 01:59] VITALS: BP 97/49
[2019-11-22 04:47] VITALS: BP 118/74
--- NOTE | 2019-11-22 06:00 | NUR ---
PLACED PATIENT ON CPM TO LEFT KNEE
[2019-11-22 07:24] LABS: BASOPHILS 0.1 % (0-2); EOSINOPHILS 0.1 % (0-7); HEMATOCRIT 34.3 % (36.0-48.0); HEMOGLOBIN 11.1 g/dL (12-16); IMMATURE GRANULOCYTES 0.2 % (0-5); LYMPHOCYTES 17.4 % (15-50); MCH 30.9 pg (26.0-34.0); MCHC 32.4 g/dL (31.0-37.0); MCV 95.5 fL (80.0-100.0); MEAN PLATELET VOLUME 8.8 fL (7.4-10.4); MONOCYTES 9.3 % (2-11); NEUTROPHILS 72.9 % (40-80); PLATELET COUNT 248 10x3/uL (130-400); RBC 3.59 10x6/uL (4.00-5.40); RDW 13.1 % (11.5-14.5); WBC 8.4 10x3/uL (4.8-10.8)
[2019-11-22 07:53] LABS: ANION GAP 12.7 mmol/L (8-16); CALCIUM 8.2 mg/dL (8.5-10.1); CARBON DIOXIDE 25.9 mmol/L (21.0-32.0); CREATININE - SERUM 1.3 mg/dL (0.6-1.3); MAGNESIUM - SERUM 1.9 mg/dL (1.8-2.4); POTASSIUM - SERUM 3.6 mmol/L (3.5-5.1)
--- NOTE | 2019-11-22 08:00 | NUR ---
PT RESTING IN BED WITH EYES OPEN CALL LIGHT IN REACH WILL MONITER
--- NOTE | 2019-11-22 08:57 | OP ---
PATIENT NAME: ANDERSON RETANA MEDICAL RECORD: [id number] :64 LOCATION:D. D.1208 ADMISSION DATE:11/21/19 SURGEON: RAVINDRA SALMON DO DATE OF OPERATION: 11/21/2019 PROCEDURE PERFORMED: Left total knee arthroplasty. POSTOPERATIVE DIAGNOSIS: Left knee osteoarthritis. POSTOPERATIVE DIAGNOSIS: Left knee osteoarthritis. INDICATIONS: Ms. Retana is a 59-year-old female who had an ACL done approximately 9 years ago. She was doing well until the last few years where she started to have catching, popping, and problems after sitting for a long time and x-rays were taken and seen to have severe osteoarthritis of the left knee. She tried all manner of nonoperative treatment to no avail and wanted something done surgically since it is affecting her activities of daily living. I informed her of the risks including infection, bleeding, damage to nerves and vessels in the area, fracture, implant failure, need for further surgery, blood clots, and even and she signed the consent. SURGEON: Ravindra Salmon DO DESCRIPTION OF PROCEDURE: The patient received a block by anesthesia in the operative suite. She was taken to the operative suite, laid in supine position, given 2 g of Ancef and 80 mg of gentamicin preoperatively. She was then sedated and LMA was placed. The left lower extremity was then prepped and draped in sterile fashion. Time-out was performed and everyone was in agreement with correct side, site, patient, and procedure. I then marked out the incision over the anterior knee and covered in Ioban. After that was done, I used a 10 blade scalpel to go down through the skin to the capsule and then used a fresh 10 blade to do a medial parapatellar approach to the knee joint. I then everted the patella, removed part of the fat pad, and milled down the patella for an implant. I then flexed the knee, removed the ACL, and then entered the femoral canal and irrigated it and then put the intramedullary guide in for the distal femur, then cut the distal femur through the pin guide. I then exposed the proximal tibia and cut it. I removed the proximal tibia bone as well as the menisci and then the 10 extension block fit well. Any bleeding was coagulated with the Aquamantys throughout the case. I then noted the femur was subluxed behind the tibia and the PCL was absent. Once discovering that, I decided to go to a PS knee. I then sized the femur and sized to be a 65. I then used a four-in-one cutting block and sherrie wing to ensure there was no notching. I cut the femur and put on the guide to do the notch out for the posterior stabilized knee and then drilled for the lugholes. I then removed that and put on the trial and brought in a tibial tray with poly and ranged the knee and marked the rotation. I then drilled for the patella and then removed the femoral trial. I then exposed the tibia and I was hoping that I can get past the screw that was in for ACL with the standard implant and I did. We then reamed and sized the tibia to be a 67 and reamed and punched and put extra holes in the tibia and then mixed cement, irrigated the tibia out, and put cement in the tibia and on the implant, impacted into place, removed the excess cement and then impacted the femur on, put a poly in between and brought the knee to extension, irrigated out the patella, put a curet to clean out the holes and put cement on the patella and on the implant, squeezed it into place and held it with a squeezer. I removed the excess cement and then put 10% povidone-iodine and 500 mL normal OPERATIVE REPORT [id number] ANDERSON RETANA saline solution in the knee and let it sit for 3 minutes and irrigated out. By then, the cement had dried and we trialled a 10 and 12 poly. The 12 poly fit better, had good range of motion and great stability in flexion and extension. I then put in a 12 E poly posterior stabilized knee and put the locking pin and ranged the knee and it fit very well. I then irrigated one more time and put in Talisha and vancomycin and tobramycin powder. I then closed the capsule with #1 Vicryl in a [id number]-vu-pqhuf fashion and I was assisted by Alessandro Franco, certified surgical first officer and flight instructor, in doing this as well as Caty Wood, certified surgical first officer and flight instructor student. Then, Caty and Alessandro then closed the skin. After closing the capsule with 2-0 Vicryl in inverted interrupted fashion, I put a ZipLine, Adaptic, 4 x 4s, ABD, Webril, Jim wrap, and STEPHANIE hose stocking on the leg. She was then awakened and taken to recovery in stable condition. BLOOD LOSS: Approximately 200 mL. COMPLICATIONS: None. NTS:[id number] Voice Confirmation ID: [id number] DOCUMENT ID: [id number] RAVINDRA SALMON DO at 0857 CC: [id number] DICTATION DATE: 11/21/19 1517 ELECTRICAL DISCHARGE MACHINE OPERATOR: 11/22/19 0042 ADM IN [place] [address] [place] [address]
--- NOTE | 2019-11-22 09:10 | MORECARE ---
CASE MANAGEMENT DISCHARGE SUMMARY PATIENT: ANDERSON RETANA UNIT: [id number] ADM DATE: 11/21/19 AGE: 59 : 64 SEX: F ROOM/BED: D.1208 AUTHOR: WILLIAMDOC PHYSICIAN: REFERRING PHYSICIAN: SAMANTHA SALMON DO DATE OF SERVICE: 11/22/19 Discharge Plan Patient Name: ANDERSON RETANA Facility: [facility]:[place] : 1960 Planned Disposition: Inpatient Rehab Anticipated Discharge Date: Discharge Date: Expected LOS: Initial Reviewer: [email or web address] Initial Review Date: 11/21/2019 Generated: 11/22/19 10:09 am Comments DCP- Discharge Planning Updated by [id number]: Milagros Landa on 11/22/19 8:[address] Late entry: CM faxed information to [facility], with [facility] 11/20. Contacted [facility] today to verify receipt. I will fax PT/OT when available. KELLI signed per patient. DCP- Discharge Planning Updated by [id number]: Milagros Landa on 11/21/19 4:[address] DC Plan: [facility] Rehab. CM met with patient to discuss initial discharge planning. Patient is in agreement to proceed, with her brother present. Patient reports that she lives at home independently, with her family. Patient states there are several grandchildren at her home, feels it would not be a safe DC plan to return there and would like to go into rehab. Patient is alert/oriented. PCP: Dr. Gil. Pharmacy: [facility]. HHS: [facility]. DME: To be delivered: Salvador CANTRELL, BSC. Patient gives permission to speak with family members/care givers. Emergency contact: Harshad Retana (brother), . Patient is Independent with all ADL's, medication management RIPPER OPERATOR. CM discussed the availability of HH, Rehab, SNF, OP Therapy, DME services. Patient states she needs rehab, but not an intensive one. Patient's choice, with her brother's assist, is [facility] Rehab. After the patient goes through rehab, she states she will DC to her mother's home. Patient denies hospitalization within the past 30 days. Patient denies the use of community resources RIPPER OPERATOR. Transportation at time of discharge: Facility or brother. CM will follow and assist with further DC plans PRN. Coverage Notice Reviewer: [id number] Niko Landa Notice Issued Date-Time: 11/21/2019 17:38 Notice Type: Patient Choice Letter Notice Delivered To: Patient Relationship to Patient: Self Hay Baler Name: Anderson Retana Delivery Method: HAND - Hand Delivered April Days: Prior Verbal Notification: Recipient Understood Notice: Recipient Signature: Yes Med Rec Note Co-signed by Attending: Coverage Notice Comment: Patient choice for [facility] Last DP export: 11/21/19 4:41 p Patient Name: ANDERSON RETANA Page [phone] at 0910 All edits/amendments must be made on the electronic document DICTATION DATE: 11/22/19908 LAN SUPPORT SPECIALIST: SON 11/22/19908 RPT#: [id number] DC DATE: STATUS: ADM IN [facility] [address] [place] [address] END OF REPORT
--- NOTE | 2019-11-22 09:17 | MORECARE ---
CASE MANAGEMENT DISCHARGE SUMMARY PATIENT: ANDERSON RETANA UNIT: [id number] ADM DATE: 11/21/19 AGE: 59 : 64 SEX: F ROOM/BED: D.1208 AUTHOR: WILLIAMDOC PHYSICIAN: REFERRING PHYSICIAN: SAMANTHA SAMLON DO DATE OF SERVICE: 11/22/19 Discharge Plan Patient Name: ANDERSON RETANA Facility: [facility]:[place] : 1960 Planned Disposition: Inpatient Rehab Anticipated Discharge Date: Discharge Date: Expected LOS: Initial Reviewer: [email or web address] Initial Review Date: 11/21/2019 Generated: 11/22/19 10:16 am Comments DCP- Discharge Planning Updated by [email or web address]: Milagros Landa on 11/22/19 8:[address] Late entry: CM faxed information to [facility], with [facility] 11/20. Contacted [facility] today to verify receipt. I will fax PT/OT when available. KELLI signed per patient. DCP- Discharge Planning Updated by [email or web address]: Milagros Landa on 11/21/19 4:[address] DC Plan: [facility] Rehab. CM met with patient to discuss initial discharge planning. Patient is in agreement to proceed, with her brother present. Patient reports that she lives at home independently, with her family. Patient states there are several grandchildren at her home, feels it would not be a safe DC plan to return there and would like to go into rehab. Patient is alert/oriented. PCP: Dr. Gil. Pharmacy: [facility]. HHS: [facility]. DME: To be delivered: Salvador CANTRELL, BSC. Patient gives permission to speak with family members/care givers. Emergency contact: Harshad Retana (brother), . Patient is Independent with all ADL's, medication management PHYSICIAN SURGEON. CM discussed the availability of HH, Rehab, SNF, OP Therapy, DME services. Patient states she needs rehab, but not an intensive one. Patient's choice, with her brother's assist, is [facility] Rehab. After the patient goes through rehab, she states she will DC to her mother's home. Patient denies hospitalization within the past 30 days. Patient denies the use of community resources PHYSICIAN SURGEON. Transportation at time of discharge: Facility or brother. CM will follow and assist with further DC plans PRN. Coverage Notice Reviewer: [id number] Niko Landa Notice Issued Date-Time: 11/21/2019 17:38 Notice Type: Patient Choice Letter Notice Delivered To: Patient Relationship to Patient: Self Industrial Sociologist Name: Anderson Retana Delivery Method: HAND - Hand Delivered April Days: Prior Verbal Notification: Recipient Understood Notice: Recipient Signature: Yes Med Rec Note Co-signed by Attending: Coverage Notice Comment: Patient choice for [facility] Last DP export: 11/21/19 4:41 p Patient Name: ANDERSON RETANA Page [phone] at 0917 All edits/amendments must be made on the electronic document DICTATION DATE: 11/22/19915 SUSTAINABILITY PURCHASING AGENT: SON 11/22/19915 RPT#: [id number] DC DATE: STATUS: ADM IN [facility] [address] [place] [address] END OF REPORT
--- NOTE | 2019-11-22 09:30 | NUR ---
PT CPM TAKEN OFF
[2019-11-22 10:06] VITALS: Ht 165.1 cm; Wt 113.4 kg
[2019-11-22 10:17] VITALS: BP 110/60
--- NOTE | 2019-11-22 12:29 | MORECARE ---
CASE MANAGEMENT DISCHARGE SUMMARY PATIENT: ANDERSON RETANA UNIT: [id number] ADM DATE: 11/21/19 AGE: 59 : 64 SEX: F ROOM/BED: D.1208 AUTHOR: WILLIAM,DOC PHYSICIAN: REFERRING PHYSICIAN: SAMANTHA SALMON DO DATE OF SERVICE: 11/22/19 Discharge Plan Patient Name: ANDERSON RETANA Facility: [facility]:[place] : 1960 Planned Disposition: Inpatient Rehab Anticipated Discharge Date: Discharge Date: Expected LOS: Initial Reviewer: [email or web address] Initial Review Date: 11/21/2019 Generated: 11/22/19 1:28 pm Comments DCP- Discharge Planning Updated by [email or web address]: Milagros Landa on 11/22/19 11:[address] 1221: Toyin with [facility] called and requested updated information. CM faxed to [facility] as requested. Late entry: RANJITH faxed information to Shanel with [facility] 11/20. Contacted Shanel today to verify receipt. I will fax PT/OT when available. KELLI signed per patient. DCP- Discharge Planning Updated by [email or web address]: Milagros Landa on 11/21/19 4:[address] DC Plan: [facility] Rehab. CM met with patient to discuss initial discharge planning. Patient is in agreement to proceed, with her brother present. Patient reports that she lives at home independently, with her family. Patient states there are several grandchildren at her home, feels it would not be a safe DC plan to return there and would like to go into rehab. Patient is alert/oriented. PCP: Dr. Gil. Pharmacy: [facility]. HHS: [facility]. DME: To be delivered: Salvador CANTRELL, LUBNA. Patient gives permission to speak with family members/care givers. Emergency contact: Harshad Retana (brother), . Patient is Independent with all ADL's, medication management MINGLER OPERATOR. CM discussed the availability of HH, Rehab, SNF, OP Therapy, DME services. Patient states she needs rehab, but not an intensive one. Patient's choice, with her brother's assist, is [facility] Rehab. After the patient goes through rehab, she states she will DC to her mother's home. Patient denies hospitalization within the past 30 days. Patient denies the use of community resources MINGLER OPERATOR. Transportation at time of discharge: Facility or brother. CM will follow and assist with further DC plans PRN. Coverage Notice Reviewer: [id number] Niko Landa Notice Issued Date-Time: 11/21/2019 17:38 Notice Type: Patient Choice Letter Notice Delivered To: Patient Relationship to Patient: Self Casing Man Name: Anderson Retana Delivery Method: HAND - Hand Delivered April Days: Prior Verbal Notification: Recipient Understood Notice: Recipient Signature: Yes Med Rec Note Co-signed by Attending: Coverage Notice Comment: [facility] Last DP export: 11/22/19 8:17 a Patient Name: ANDERSON RETANA Page [phone] at 1229 All edits/amendments must be made on the electronic document DICTATION DATE: 11/22/198 BUSINESS INTELLIGENCE ARCHITECT: SON 11/22/19 1228 RPT#: [id number] DC DATE: STATUS: ADM IN [facility] [address] [place] [address] END OF REPORT
--- NOTE | 2019-11-22 15:44 | MORECARE ---
CASE MANAGEMENT DISCHARGE SUMMARY PATIENT: ANDERSON RETANA UNIT: [id number] ADM DATE: 11/21/19 AGE: 59 : 64 SEX: F ROOM/BED: D.1208 AUTHOR: CHETNA THOMAS PHYSICIAN: REFERRING PHYSICIAN: SAMANTHA SALMON DO DATE OF SERVICE: 11/22/19 Discharge Plan Patient Name: ANDERSON RETANA Facility: [facility]:[place] : 1960 Planned Disposition: Inpatient Rehab Anticipated Discharge Date: Discharge Date: Expected LOS: Initial Reviewer: [id number] Initial Review Date: 11/21/2019 Generated: 11/22/19 4:44 pm Comments DCP- Discharge Planning Updated by [email or web address]: Milagros Landa on 11/22/19 2:[address] 1540: Faxed additional PT/OT to [facility]. 1221: [facility] with [facility] called and requested updated information. CM faxed to [facility] as requested. Late entry: RANJITH faxed information to [facility] 11/20. Contacted [facility] today to verify receipt. I will fax PT/OT when available. KELLI signed per patient. DCP- Discharge Planning Updated by [email or web address]: Milagros Landa on 11/21/19 4:[address] DC Plan: [facility] Rehab. CM met with patient to discuss initial discharge planning. Patient is in agreement to proceed, with her brother present. Patient reports that she lives at home independently, with her family. Patient states there are several grandchildren at her home, feels it would not be a safe DC plan to return there and would like to go into rehab. Patient is alert/oriented. PCP: Dr. Gil. Pharmacy: [facility]. HHS: [facility]. DME: To be delivered: Salvador CANTRELL, LUBNA. Patient gives permission to speak with family members/care givers. Emergency contact: Harshad Retana (brother), . Patient is Independent with all ADL's, medication management CORRECTIONAL PROGRAM SPECIALIST. CM discussed the availability of HH, Rehab, SNF, OP Therapy, DME services. Patient states she needs rehab, but not an intensive one. Patient's choice, with her brother's assist, is [facility] Rehab. After the patient goes through rehab, she states she will DC to her mother's home. Patient denies hospitalization within the past 30 days. Patient denies the use of community resources CORRECTIONAL PROGRAM SPECIALIST. Transportation at time of discharge: Facility or brother. CM will follow and assist with further DC plans PRN. Coverage Notice Reviewer: [id number] - Milagros Landa Notice Issued Date-Time: 11/21/2019 17:38 Notice Type: Patient Choice Letter Notice Delivered To: Patient Relationship to Patient: Self Professor Of Rhetoric Name: Anderson Retana Delivery Method: HAND - Hand Delivered April Days: Prior Verbal Notification: Recipient Understood Notice: Recipient Signature: Yes Med Rec Note Co-signed by Attending: Coverage Notice Comment: [facility] Last DP export: 11/22/19 11:29 a Patient Name: ANDERSON RETANA Page [phone] at 1544 All edits/amendments must be made on the electronic document DICTATION DATE: 11/22/19 1544 WOOD DRILL OPERATOR: SON 11/22/19 1544 RPT#: [id number] DC DATE: STATUS: ADM IN [facility] [address] [place] [address] END OF REPORT
--- NOTE | 2019-11-22 18:05 | NUR ---
PT RESTING IN BED WITH EYES OPEN CALL LIGHT IN REACH WILL MONITER
[2019-11-22 19:51] VITALS: BP 112/59; BP 126/67
--- NOTE | 2019-11-22 20:00 | NUR ---
ALERT RESTING IN BED, CPM IN USE, DENIES NEEDS AT THIS TIME, SEE SHIFT ASSESSMENT, CALL LIGHT IN REACH
[2019-11-23 04:37] VITALS: BP 131/51
--- NOTE | 2019-11-23 07:35 | NUR ---
PT RESTING IN BED ASLEEP. AWAKENS WITH NAME CALLED. RESP EVEN AND UNLABORED. CPM IN PLACE AND IN USE TO LEFT LOWER EXTREMITY. DRESSING C/D/I TO LEFT LOWER EXTREMITY. DENIES FURTHER NEEDS AT THIS TIME. CL WITHIN REACH. ENCOURAGED TO CALL WITH NEEDS. CONTINUE POC
[2019-11-23 08:21] LABS: BASOPHILS 0.1 % (0-2); EOSINOPHILS 1.5 % (0-7); HEMATOCRIT 31.8 % (36.0-48.0); HEMOGLOBIN 10.4 g/dL (12-16); IMMATURE GRANULOCYTES 0.2 % (0-5); LYMPHOCYTES 43.5 % (15-50); MCHC 32.7 g/dL (31.0-37.0); MCV 94.6 fL (80.0-100.0); MEAN PLATELET VOLUME 8.6 fL (7.4-10.4); MONOCYTES 10.2 % (2-11); NEUTROPHILS 44.5 % (40-80); PLATELET COUNT 234 10x3/uL (130-400); RBC 3.36 10x6/uL (4.00-5.40); RDW 13.4 % (11.5-14.5); WBC 8.9 10x3/uL (4.8-10.8)
[2019-11-23 08:38] VITALS: BP 138/82
[2019-11-23 08:45] LABS: ANION GAP 8.4 mmol/L (8-16); CALCIUM 8.2 mg/dL (8.5-10.1); CARBON DIOXIDE 29.3 mmol/L (21.0-32.0); MAGNESIUM - SERUM 2.1 mg/dL (1.8-2.4); POTASSIUM - SERUM 3.7 mmol/L (3.5-5.1)
--- NOTE | 2019-11-23 09:01 | NUR ---
OT NOTE: (DOS 11/22/19) PT COMPLETED SIT TO STAND WITH MIN A. PT COMPLETED ADL MOB WITH MIN A. PT REQUIRED MIN A FOR TOILETING TASKS. 117-140 THANK YOU,RACHEAL JACOBO
[2019-11-23 11:39] VITALS: BP 144/66
--- NOTE | 2019-11-23 11:58 | NUR ---
OT NOTE: PT PERFORMED WELL TODAY. BED MOB WITH VERY MINIMAL ASSIST. SIT TO STAND WITH MIN ASSIST; AMB AROUND ROOM AND INTO HALLWAY X 40 FT; REQUIRED 1 REST BREAK DUE MUSCLE CRAMPING IN R LE. PT ABLE TO PERFORM SIMPLE GROOMING AND UPPER BODY BATHING IW SET UP..REQUIRED MOD ASSIST WITH LE AND PERINEAL AREA. TRANSFERRED TO CHAIR WITH MIN ASSIST. CONTINUES TO EXHIBIT WEAKNESS AND DECREASED FUNCTIONAL ENDURANCE. WOULD BENEFIT FROM [facility] RE[facility]AB. YAYO LANDRY, OTR/L [phone]
--- NOTE | 2019-11-23 16:32 | MORECARE ---
CASE MANAGEMENT DISCHARGE SUMMARY PATIENT: ANDERSON RETANA UNIT: [id number] ADM DATE: 11/21/19 AGE: 59 : 64 SEX: F ROOM/BED: D.1208 AUTHOR: WILLIAM,DOC PHYSICIAN: REFERRING PHYSICIAN: SAMANTHA SALMON DO DATE OF SERVICE: 11/23/19 Discharge Plan Patient Name: ANDERSON RETANA Facility: [facility]:[place] : 1960 Planned Disposition: Inpatient Rehab Anticipated Discharge Date: 11/24/19 Discharge Date: Expected LOS: 3 Initial Reviewer: [email or web address] Initial Review Date: 11/21/2019 Generated: 11/23/19 5:31 pm Comments DCP- Discharge Planning Updated by [email or web address]: Milagros Landa on 11/23/19 3:[address] Patient has been denied Rehab, per her insurance. CM met with patient, explained the denial, provided the list of agencies. Patient's first choice is [employer] [facility]. CM contacted [place], faxed required information. DCP- Discharge Planning Updated by [email or web address]: Milagros Landa on 11/22/19 2:[address] 1540: Faxed additional PT/OT to [facility]. 1221: [facility]in with [facility] called and requested updated information. CM faxed to [facility] as requested. Late entry: RANJITH faxed information to [facility] 11/20. Contacted [facility] today to verify receipt. I will fax PT/OT when available. KELLI signed per patient. DCP- Discharge Planning Updated by [id number]: Milagros Landa on 11/21/19 4:[address] DC Plan: [facility]. CM met with patient to discuss initial discharge planning. Patient is in agreement to proceed, with her brother present. Patient reports that she lives at home independently, with her family. Patient states there are several grandchildren at her home, feels it would not be a safe DC plan to return there and would like to go into rehab. Patient is alert/oriented. PCP: Dr. Gil. Pharmacy: [facility]. HHS: Declines. DME: To be delivered: CPM, Salvador, BSC. Patient gives permission to speak with family members/care givers. Emergency contact: Harshad Retana (brother), . Patient is Independent with all ADL's, medication management WHITE LEAD GRINDER. CM discussed the availability of HH, Rehab, SNF, OP Therapy, DME services. Patient states she needs rehab, but not an intensive one. [facility] After the patient goes through rehab, she states she will DC to her mother's home. Patient denies hospitalization within the past 30 days. Patient denies the use of community resources WHITE LEAD GRINDER. Transportation at time of discharge: Facility or brother. CM will follow and assist with further DC plans PRN. External Providers External Provider: [facility] [facility] Next Contact Date: Service Request Date: Service Type: Resolution: Reviewer: Comments: Coverage Notice Reviewer: [id number] Niko Landa Notice Issued Date-Time: 11/21/2019 17:38 Notice Type: Patient Choice Letter Notice Delivered To: Patient Relationship to Patient: Self Iron Setter Name: Anderson Retana Delivery Method: HAND - Hand Delivered April Days: Prior Verbal Notification: Recipient Understood Notice: Recipient Signature: Yes Med Rec Note Co-signed by Attending: Coverage Notice Comment: [facility] Reviewer: [id number] Niko Landa Notice Issued Date-Time: 11/23/2019 16:31 Notice Type: Patient Choice Letter Notice Delivered To: Patient Relationship to Patient: Self Iron Setter Name: Anderson Retana Delivery Method: - April Days: Prior Verbal Notification: Recipient Understood Notice: Recipient Signature: Med Rec Note Co-signed by Attending: Coverage Notice Comment: Last DP export: 11/22/19 2:44 p Patient Name: ANDERSON RETANA Page [id number] at 1632 All edits/amendments must be made on the electronic document DICTATION DATE: 11/23/19 1631 INVOICE CLASSIFICATION CLERK: SON 11/23/19 1631 RPT#: [id number] DC DATE: STATUS: ADM IN [facility] [address] [place] [address] END OF REPORT
[2019-11-23 16:49] VITALS: BP 115/62
--- NOTE | 2019-11-23 16:55 | MORECARE ---
CASE MANAGEMENT DISCHARGE SUMMARY PATIENT: ANDERSON RETANA UNIT: [id number] ADM DATE: 11/21/19 AGE: 59 : 64 SEX: F ROOM/BED: D.1208 AUTHOR: WILLIAM,DOC PHYSICIAN: REFERRING PHYSICIAN: SAMANTHA SALMON DO DATE OF SERVICE: 11/23/19 Discharge Plan Patient Name: ANDERSON RETANA Facility: [facility]:[place] : 1960 Planned Disposition: Inpatient Rehab Anticipated Discharge Date: 11/24/19 Discharge Date: Expected LOS: 3 Initial Reviewer: [email or web address] Initial Review Date: 11/21/2019 Generated: 11/23/19 5:54 pm Comments DCP- Discharge Planning Updated by [email or web address]: Milagros Landa on 11/23/19 3:[address] Patient has been denied Rehab, per her insurance. CM met with patient, explained the denial, provided the list of HH/SNF agencies. Patient's first choice is [facility]. CM contacted [place], faxed required information. DCP- Discharge Planning Updated by [email or web address]: Milagros Landa on 11/22/19 2:[address] 1540: Faxed additional PT/OT to [facility]. 1221: Toyin with [facility] called and requested updated information. CM faxed to [facility] as requested. Late entry: RANJITH faxed information to Shanel [facility] 11/20. Contacted [facility] today to verify receipt. I will fax PT/OT when available. KELLI signed per patient. DCP- Discharge Planning Updated by [id number]: Milagros Landa on 11/21/19 4:[address] DC Plan: [facility] Rehab. CM met with patient to discuss initial discharge planning. Patient is in agreement to proceed, with her brother present. Patient reports that she lives at home independently, with her family. Patient states there are several grandchildren at her home, feels it would not be a safe DC plan to return there and would like to go into rehab. Patient is alert/oriented. PCP: Dr. Gil. Pharmacy: [facility]. HHS: Declines. DME: To be delivered: CPM, Walker, BSC. Patient gives permission to speak with family members/care givers. Emergency contact: Harshad Retana (brother), . Patient is Independent with all ADL's, medication management CHEMICAL PLANT MANAGER. CM discussed the availability of HH, Rehab, SNF, OP Therapy, DME services. Patient states she needs rehab, but not an intensive one. [facility] After the patient goes through rehab, she states she will DC to her mother's home. Patient denies hospitalization within the past 30 days. Patient denies the use of community resources CHEMICAL PLANT MANAGER. Transportation at time of discharge: Facility or brother. CM will follow and assist with further DC plans PRN. Coverage Notice Reviewer: [id number] Niko Landa Notice Issued Date-Time: 11/21/2019 17:38 Notice Type: Patient Choice Letter Notice Delivered To: Patient Relationship to Patient: Self Hospital Housekeeper Name: Anderson Retana Delivery Method: HAND - Hand Delivered April Days: Prior Verbal Notification: Recipient Understood Notice: Recipient Signature: Yes Med Rec Note Co-signed by Attending: Coverage Notice Comment: [facility] Reviewer: [id number] Niko Landa Notice Issued Date-Time: 11/23/2019 16:31 Notice Type: Patient Choice Letter Notice Delivered To: Patient Relationship to Patient: Self Hospital Housekeeper Name: Anderson Retana Delivery Method: HAND - Hand Delivered April Days: Prior Verbal Notification: Recipient Understood Notice: Yes Recipient Signature: Yes Med Rec Note Co-signed by Attending: Coverage Notice Comment: [facility], [facility] IV. Last DP export: 11/23/19 3:32 p Patient Name: ANDERSON RETANA Page [id number] at 1655 All edits/amendments must be made on the electronic document DICTATION DATE: 11/23/191653 PRECISION AIRCRAFT SYSTEMS ASSEMBLER: SON 11/23/191653 RPT#: [id number] DC DATE: STATUS: ADM IN [facility] [address] [place] [address] END OF REPORT
--- NOTE | 2019-11-23 17:14 | MORECARE ---
CASE MANAGEMENT DISCHARGE SUMMARY PATIENT: ANDERSON RETANA UNIT: [id number] ADM DATE: 11/21/19 AGE: 59 : 64 SEX: F ROOM/BED: D.1208 AUTHOR: WILLIAM,DOC PHYSICIAN: REFERRING PHYSICIAN: SAMANTHA SALMON DO DATE OF SERVICE: 11/23/19 Discharge Plan Patient Name: ANDERSON RETANA Facility: [facility]:[place] : 1960 Planned Disposition: Inpatient Rehab Anticipated Discharge Date: 11/24/19 Discharge Date: Expected LOS: 3 Initial Reviewer: [id number] Initial Review Date: 11/21/2019 Generated: 11/23/19 6:14 pm Comments DCP- Discharge Planning Updated by [email or web address]: Milagros Landa on 11/23/19 4:[address] Patient states she will go to her mother's home @[address] [place] [address], [place] [address]. Home phone [phone], 2 nd cell #[phone]. Patient has been denied Rehab, per her insurance. CM met with patient, explained the denial, provided the list of HH/SNF agencies. Patient's first choice is [facility]. CM contacted [facility], faxed required information. DCP- Discharge Planning Updated by [email or web address]: Milagros Landa on 11/22/19 2:[address] 1540: Faxed additional PT/OT to [facility]. 1221: Toyin with [facility] called and requested updated information. CM faxed to Toyin as requested. Late entry: RANJITH faxed information to Shanel with [facility] [employer] 11/20. Contacted Shanel today to verify receipt. I will fax PT/OT when available. KELLI signed per patient. DCP- Discharge Planning Updated by [email or web address]: Milagros Landa on 11/21/19 4:[address] DC Plan: [facility] Rehab. CM met with patient to discuss initial discharge planning. Patient is in agreement to proceed, with her brother present. Patient reports that she lives at home independently, with her family. Patient states there are several grandchildren at her home, feels it would not be a safe DC plan to return there and would like to go into rehab. Patient is alert/oriented. PCP: Dr. Gil. Pharmacy: [facility]. HHS: Declines. DME: To be delivered: CPM, Salvador, BSC. Patient gives permission to speak with family members/care givers. Emergency contact: Harshad Retana (brother), . Patient is Independent with all ADL's, medication management CHAINMAN. CM discussed the availability of HH, Rehab, SNF, OP Therapy, DME services. Patient states she needs rehab, but not an intensive one. Patient's choice, with her brother's assist, is [facility]. After the patient goes through rehab, she states she will DC to her mother's home. Patient denies hospitalization within the past 30 days. Patient denies the use of community resources CHAINMAN. Transportation at time of discharge: Facility or brother. CM will follow and assist with further DC plans PRN. Coverage Notice Reviewer: [id number] Niko Milagrosfeyl Landa Notice Issued Date-Time: 11/21/2019 17:38 Notice Type: Patient Choice Letter Notice Delivered To: Patient Relationship to Patient: Self Database Security Administrator Name: Anderson Retana Delivery Method: HAND - Hand Delivered April Days: Prior Verbal Notification: Recipient Understood Notice: Recipient Signature: Yes Med Rec Note Co-signed by Attending: Coverage Notice Comment: [facility] Reviewer: [id number] Niko Landa Notice Issued Date-Time: 11/23/2019 16:31 Notice Type: Patient Choice Letter Notice Delivered To: Patient Relationship to Patient: Self Database Security Administrator Name: Anderson Retana Delivery Method: HAND - Hand Delivered April Days: Prior Verbal Notification: Recipient Understood Notice: Yes Recipient Signature: Yes Med Rec Note Co-signed by Attending: Coverage Notice Comment: [facility] choice [facility], 2[facility] Care IV. Last DP export: 11/23/19 3:55 p Patient Name: ANDERSON RETANA Page [id number] at 4364 All edits/amendments must be made on the electronic document DICTATION DATE: 11/23/191713 [employer] ARBOR END: SON 11/23/191713 RPT#: [id number] DC DATE: STATUS: ADM IN [facility] [address] [place] [address] END OF REPORT
--- NOTE | 2019-11-23 17:33 | MORECARE ---
CASE MANAGEMENT DISCHARGE SUMMARY PATIENT: ANDERSON RETANA UNIT: [id number] ADM DATE: 11/21/19 AGE: 59 : 64 SEX: F ROOM/BED: D.1208 AUTHOR: WILLIAM,DOC PHYSICIAN: REFERRING PHYSICIAN: SAMANTHA SALMON DO DATE OF SERVICE: 11/23/19 Discharge Plan Patient Name: ANDERSON RETANA Facility: [facility]:[place] : 1960 Planned Disposition: Inpatient Rehab Anticipated Discharge Date: 11/24/19 Discharge Date: Expected LOS: 3 Initial Reviewer: [id number] Initial Review Date: 11/21/2019 Generated: 11/23/19 6:33 pm Comments DCP- Discharge Planning Updated by [email or web address]: Milagros Landa on 11/23/19 4:[address] Patient states she will go to her mother's home @[address] [place] [address], [place] [address]. Home phone [phone], 2 nd cell #[phone]. Patient has been denied Rehab, per her insurance. CM met with patient, explained the denial, provided the list of HH/SNF agencies. Patient's [facility] choice is [facility]. CM contacted [facility], faxed required information. DCP- Discharge Planning Updated by [id number]: Milagros Landa on 11/22/19 2:[address] 1540: Faxed additional PT/OT to [facility]. 1221: Toyin with [facility] called and requested updated information. CM faxed to Toyin as requested. Late entry: RANJITH faxed information to Shanel with [facility] 11/20. Contacted Shanel today to verify receipt. I will fax PT/OT when available. KELLI signed per patient. DCP- Discharge Planning Updated by [id number]: Milagros Landa on 11/21/19 4:[address] DC Plan: [facility] Rehab. CM met with patient to discuss initial discharge planning. Patient is in agreement to proceed, with her brother present. Patient reports that she lives at home independently, with her family. Patient states there are several grandchildren at her home, feels it would not be a safe DC plan to return there and would like to go into rehab. Patient is alert/oriented. PCP: Dr. Gil. Pharmacy: [facility]. HHS: Declines. DME: To be delivered: TAMIA, Salvador, BSC. Patient gives permission to speak with family members/care givers. Emergency contact: Harshad Retana (brother), . Patient is Independent with all ADL's, medication management CORE BAKER. CM discussed the availability of HH, Rehab, SNF, OP Therapy, DME services. Patient states she needs rehab, but not an intensive one. Patient's choice, with her brother's assist, is [facility] Rehab. After the patient goes through rehab, she states she will DC to her mother's home. Patient denies hospitalization within the past 30 days. Patient denies the use of community resources CORE BAKER. Transportation at time of discharge: Facility or brother. CM will follow and assist with further DC plans PRN. Coverage Notice Reviewer: [id number] Niko Milagrosfely Landa Notice Issued Date-Time: 11/21/2019 17:38 Notice Type: Patient Choice Letter Notice Delivered To: Patient Relationship to Patient: Self Front Office Director Name: Anderson Retana Delivery Method: HAND - Hand Delivered April Days: Prior Verbal Notification: Recipient Understood Notice: Recipient Signature: Yes Med Rec Note Co-signed by Attending: Coverage Notice Comment: [facility] Reviewer: [id number] Niko Landa Notice Issued Date-Time: 11/23/2019 16:31 Notice Type: Patient Choice Letter Notice Delivered To: Patient Relationship to Patient: Self Front Office Director Name: Anderson Retana Delivery Method: HAND - Hand Delivered April Days: Prior Verbal Notification: Recipient Understood Notice: Yes Recipient Signature: Yes Med Rec Note Co-signed by Attending: Coverage Notice Comment: [facility], 2[facility] Care IV. Last DP export: 11/23/19 4:14 p Patient Name: ANDERSON RETANA Page [phone] at 1734 All edits/amendments must be made on the electronic document DICTATION DATE: 11/23/191732 FLITCH HANGER: SON 11/23/191732 RPT#: [id number] DC DATE: STATUS: ADM IN [facility] [address] [facility] [place] [address] END OF REPORT
[2019-11-23 20:00] VITALS: BP 104/58
--- NOTE | 2019-11-23 21:00 | NUR ---
ALERT RESTING IN BED CPM IN USE, DENIES PAIN OR NEEDS AT THIS TIME, CALL TIANNA MASTERSON, SEE SHIFT ASSESSMENT
[2019-11-24 04:00] VITALS: BP 99/56
[2019-11-24 05:36] LABS: HEMATOCRIT 31.3 % (36.0-48.0); HEMOGLOBIN 9.7 g/dL (12-16); MEAN PLATELET VOLUME 8.7 fL (7.4-10.4); PLATELET COUNT 258 10x3/uL (130-400); RBC 3.23 10x6/uL (4.00-5.40); RDW 13.6 % (11.5-14.5); WBC 10.2 10x3/uL (4.8-10.8)
[2019-11-24 05:47] LABS: ANION GAP 6.6 mmol/L (8-16); CALCIUM 8.7 mg/dL (8.5-10.1); CARBON DIOXIDE 31.2 mmol/L (21.0-32.0); CREATININE - SERUM 1.1 mg/dL (0.6-1.3); MAGNESIUM - SERUM 2.2 mg/dL (1.8-2.4); POTASSIUM - SERUM 3.8 mmol/L (3.5-5.1)
[2019-11-24 06:24] LABS: MCV 96.9 fL (80.0-100.0)
--- NOTE | 2019-11-24 07:22 | NUR ---
PT RESTING QUIETLY IN BED. RESP EVEN AND UNLABORED. AWAKENS WITH NAME CALLED. REPORTS PAIN 6/10 AT THIS TIME. CPM TO LEFT LOWER EXTREMITY. PT MELINDA WELL. DRESSING C/D/I. DENIES FURTHER NEEDS AT THIS TIME. CL WITHIN REACH. ENCOURAGED TO CALL WITH NEEDS. CONTINUE POC
[2019-11-24 08:40] VITALS: BP 133/67
--- NOTE | 2019-11-24 09:00 | MORECARE ---
CASE MANAGEMENT DISCHARGE SUMMARY PATIENT: ANDERSON RETANA UNIT: [id number] ADM DATE: 11/21/19 AGE: 59 : 64 SEX: F ROOM/BED: D.1208 AUTHOR: WILLIAM,DOC PHYSICIAN: REFERRING PHYSICIAN: SAMANTHA SALMON DO DATE OF SERVICE: 11/24/19 Discharge Plan Patient Name: ANDERSON RETANA Facility: [facility]:[place] : 1960 Planned Disposition: Inpatient Rehab Anticipated Discharge Date: 11/24/19 Discharge Date: Expected LOS: 3 Initial Reviewer: [email or web address] Initial Review Date: 11/21/2019 Generated: 11/24/19 9:59 am Comments DCP- Discharge Planning Updated by [email or web address]: Milagros Landa on 11/24/19 7:[address] Patient request that information be sent for a SNF bed. RANJITH contacted Katelin Solorzano, who states that [facility] accepts patient's insurance. Faxed required information to Katelin. DCP- Discharge Planning Updated by [id number]: Milagros Landa on 11/23/19 4:[address] Patient states she will go to her mother's home @[address] [place] [address] [place] [address]. Home phone [phone], 2 nd cell #[phone]. Patient has been denied Rehab, per her insurance. RANJITH met with patient, explained the denial, provided the list of HH/SNF agencies. Patient's first choice is [facility]. CM contacted [facility], faxed required information. DCP- Discharge Planning Updated by [id number]: Milagros Landa on 11/22/19 2:[address] 1540: [facility] 1221: Toyin with [facility] called and requested updated information. CM faxed to Toyin as requested. Late entry: RANJITH faxed information to [facility] [employer] 11/20. Contacted Shanel today to verify receipt. I will fax PT/OT when available. KELLI signed per patient. DCP- Discharge Planning Updated by [email or web address]: Milagros Landa on 11/21/19 4:[address] [facility] CM met with patient to discuss initial discharge planning. Patient is in agreement to proceed, with her brother present. Patient reports that she lives at home independently, with her family. Patient states there are several grandchildren at her home, feels it would not be a safe DC plan to return there and would like to go into rehab. Patient is alert/oriented. PCP: Dr. Gil. Pharmacy: [facility]. HHS: Mary. DME: To be delivered: CPM, Walker, BSC. Patient gives permission to speak with family members/care givers. Emergency contact: Harshad Retana (brother), . 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 CM discussed the availability of HH, Rehab, SNF, OP Therapy, DME services. Patient states she needs rehab, but not an intensive one. Patient's [facility], with her [facility]'s assist, [facility]. After the patient goes through rehab, she states she will DC to her mother's home. Patient denies hospitalization within the past 30 days. Patient denies the use of community resources WASH OIL PUMP OPERATOR. Transportation at time of discharge: Facility or brother. CM will follow and assist with further DC plans PRN. External Providers External Provider: OTHER-OTHER Next Contact Date: Service Request Date: Service Type: Resolution: Reviewer: Comments: Coverage Notice Reviewer: [id number] - Milagros Landa Notice Issued Date-Time: 11/21/2019 17:38 Notice Type: Patient Choice Letter Notice Delivered To: Patient Relationship to Patient: Self Transcripter Name: Anderson Retana Delivery Method: HAND - Hand Delivered April Days: Prior Verbal Notification: Recipient Understood Notice: Recipient Signature: Yes Med Rec Note Co-signed by Attending: Coverage Notice Comment: [facility] Reviewer: [id number] - Milagros Coellolroy Notice Issued Date-Time: 11/23/2019 16:31 Notice Type: Patient Choice Letter Notice Delivered To: Patient Relationship to Patient: Self Transcripter Name: Anderson Retana Delivery Method: HAND - Hand Delivered April Days: Prior Verbal Notification: Recipient Understood Notice: Yes Recipient Signature: Yes Med Rec Note Co-signed by Attending: Coverage Notice Comment: [facility], 2[facility] Care IV. Last DP export: 11/23/19 4:33 p Patient Name: ANDERSON RETANA Page [id number] at 0900 All edits/amendments must be made on the electronic document DICTATION DATE: 11/24/19858 SANITOR: SON 11/24/1957 RPT#: [id number] DC DATE: STATUS: ADM IN [facility] [address] [place] [address] END OF REPORT
[2019-11-24 09:49] LABS: EOSINOPHILS 3 % (0-7); LYMPHOCYTES 31 % (15-50); MONOCYTES 17 % (2-11); NEUTROPHILS 48 % (40-80); PLATELET ESTIMATE NORMAL; ROULEAUX OCC
--- NOTE | 2019-11-24 10:19 | NUR ---
Nutrition Follow-up: Diet: Regular PO intake: 100% x 3 meals Last BM: none recorded since admit. Wt: 250# (11/22/19) Meds noted: HCTZ. Labs noted: Na 132(L), Glu 114(H) Recommend continue current diet. RD following.
[2019-11-24 11:47] VITALS: BP 115/63
--- NOTE | 2019-11-24 12:35 | NUR ---
OT NOTE: BED MOB WITH VERY MIN ASSIST; SIT TO STAND WITH MIN ASSIST; FXAL TRANSFERS WITH WALKER AND MIN ASSIST; CONT TO EXHIBIT INCREASED DIFFICULTY WITH LE DRESSING , TOILET HYGIENE, AND UE WEAKNESS. YAYO LANDRY, OTR/L [phone]
--- NOTE | 2019-11-24 13:49 | MORECARE ---
CASE MANAGEMENT DISCHARGE SUMMARY PATIENT: ANDERSON RETANA UNIT: [id number] ADM DATE: 11/21/19 AGE: 59 : 64 SEX: F ROOM/BED: D.1208 AUTHOR: WILLIAM,DOC PHYSICIAN: REFERRING PHYSICIAN: SAMANTHA SALMON DO DATE OF SERVICE: 11/24/19 Discharge Plan Patient Name: ANDERSON RETANA Facility: [facility]:[place] : 1960 Planned Disposition: Inpatient Rehab Anticipated Discharge Date: 11/24/19 Discharge Date: Expected LOS: 3 Initial Reviewer: [email or web address] Initial Review Date: 11/21/2019 Generated: 11/24/19 2:49 pm Comments DCP- Discharge Planning Updated by [id number]: Milagros Landa on 11/24/19 12:[address] ROWAN completed and faxed. Await recommendation. Ghada with HH made aware of change of plans. Patient request that information be sent for a SNF bed. CM contacted Katelin Solorzano, who states that [facility] accepts patient's insurance. Faxed required information to Katelin. DCP- Discharge Planning Updated by [email or web address]: Milagros Landa on 11/23/19 4:[address] Patient states she will go to her mother's home @[address] [facility] [place] [address]. Home phone [phone], 2 nd cell #[phone]. Patient has been denied Rehab, per her insurance. RANJITH met with patient, explained the denial, provided the list of HH/SNF agencies. Patient's [facility] choice is [facility]. CM contacted Ghada, faxed required information. DCP- Discharge Planning Updated by [id number]: Milagros Landa on 11/22/19 2:[address] 1540: Faxed additional PT/OT to [facility] [employer]. 1221: Toyin with [employer] called and requested updated information. CM faxed to Toyin as requested. Late entry: RANJITH faxed information to luke Ugarte [employer] 11/20. Contacted Shanel today to verify receipt. I will fax PT/OT when available. KELLI signed per patient. DCP- Discharge Planning Updated by [id number]: Milagros Landa on 11/21/19 4:[address] [facility] CM met with patient to discuss initial discharge planning. Patient is in agreement to proceed, with her brother present. Patient reports that she lives at home independently, with her family. Patient states there are several grandchildren at her home, feels it would not be a safe DC plan to return there and would like to go into rehab. Patient is alert/oriented. PCP: Dr. Gil. Pharmacy: [facility]. HHS: [facility]. DME: To be delivered: TAMIA, Salvador, JACOBC. Patient gives permission to speak with family members/care givers. Emergency contact: Harshad Retana (brother), . 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 CM discussed the availability of HH, Rehab, SNF, OP Therapy, DME services. Patient states she needs rehab, but not an intensive one. Patient[facility], with [facility]'s assist[facility] After the patient goes through rehab, she states she will DC to her mother's home. Patient denies hospitalization within the past 30 days. Patient denies the use of community resources CHOPPED STRAND OPERATOR. Transportation at time of discharge: Facility or brother. CM will follow and assist with further DC plans PRN. Coverage Notice Reviewer: [id number] - Milagros Landa Notice Issued Date-Time: 11/21/2019 17:38 Notice Type: Patient Choice Letter Notice Delivered To: Patient Relationship to Patient: Self Manager Body Name: Anderson Retana Delivery Method: HAND - Hand Delivered April Days: Prior Verbal Notification: Recipient Understood Notice: Recipient Signature: Yes Med Rec Note Co-signed by Attending: Coverage Notice Comment: [facility] Reviewer: [id number] - Milagros Landa Notice Issued Date-Time: 11/23/2019 16:31 Notice Type: Patient Choice Letter Notice Delivered To: Patient Relationship to Patient: Self Manager Body Name: Anderson Retana Delivery Method: HAND - Hand Delivered April Days: Prior Verbal Notification: Recipient Understood Notice: Yes Recipient Signature: Yes Med Rec Note Co-signed by Attending: Coverage Notice Comment: [facility], 2nd Care IV. Reviewer: [id number] Niko Landa Notice Issued Date-Time: 11/24/2019 9:02 Notice Type: Patient Choice Letter Notice Delivered To: Patient Relationship to Patient: Self Manager Body Name: Anderson Retana Delivery Method: HAND - Hand Delivered April Days: Prior Verbal Notification: Recipient Understood Notice: Yes Recipient Signature: Yes Med Rec Note Co-signed by Attending: Coverage Notice Comment: [facility] Last DP export: 11/24/19 8:00 a Patient Name: ANDERSON RETANA Page [id number] at 1349 All edits/amendments must be made on the electronic document DICTATION DATE: 11/24/19 134 PROJECT ACCOUNT MANAGER: SON 11/24/19 1349 RPT#: [id number] DC DATE: STATUS: ADM IN [facility] [address] [place] [address] END OF REPORT
--- NOTE | 2019-11-24 15:45 | MORECARE ---
CASE MANAGEMENT DISCHARGE SUMMARY PATIENT: ANDERSON RETANA UNIT: [id number] ADM DATE: 11/21/19 AGE: 59 : 64 SEX: F ROOM/BED: D.1208 AUTHOR: WILLIAM,DOC PHYSICIAN: REFERRING PHYSICIAN: SAMANTHA SALMON DO DATE OF SERVICE: 11/24/19 Discharge Plan Patient Name: ANDERSON RETANA Facility: [facility]:[place] : 1960 Planned Disposition: Inpatient Rehab Anticipated Discharge Date: 11/24/19 Discharge Date: Expected LOS: 3 Initial Reviewer: [id number] Initial Review Date: 11/21/2019 Generated: 11/24/19 4:44 pm Comments DCP- Discharge Planning Updated by [id number]: Milagros Landa on 11/24/19 2:[address] ROWAN approval for 60 days received and faxed to Katelin. ROWAN completed and faxed. Await recommendation. Ghada with HH made aware of change of plans. Patient request that information be sent for a SNF bed. CM contacted Katelin Solorzano, who states that [facility] accepts patient's insurance. Faxed required information to Katelin. DCP- Discharge Planning Updated by [email or web address]: Milagros Landa on 11/23/19 4:[address] Patient states she will go to her mother's home @[address] [place] [address] [place] [address]. Home phone [phone], 2 nd cell #[phone]. Patient has been denied Rehab, per her insurance. RANJITH met with patient, explained the denial, provided the list of HH/SNF agencies. Patient's [facility] choice is [facility]. CM contacted Ghada, faxed required information. DCP- Discharge Planning Updated by [email or web address]: Milagros Landa on 11/22/19 2:[address] 1540: Faxed additional PT/OT to [facility] [employer]. 1221: Toyin with [employer] called and requested updated information. CM faxed to Toyin as requested. Late entry: RANJITH faxed information to [facility] 11/20. Contacted Shanel today to verify receipt. I will fax PT/OT when available. KELLI signed per patient. DCP- Discharge Planning Updated by [id number]: Milagros Landa on 11/21/19 4:[address] DC Plan: [facility]. CM met with patient to discuss initial discharge planning. Patient is in agreement to proceed, with her brother present. Patient reports that she lives at home independently, with her family. Patient states there are several grandchildren at her home, feels it would not be a safe DC plan to return there and would like to go into rehab. Patient is alert/oriented. PCP: Dr. Gil. Pharmacy: [facility]. HHS: [facility]. DME: To be delivered: Salvador CANTRELL, LUBNA. Patient gives permission to speak with family members/care givers. Emergency contact: Harshad Retana (brother), . 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 CM discussed the availability of HH, Rehab, SNF, OP Therapy, DME services. Patient states she needs rehab, but not an intensive one. Patient's choice, with her brother's assist, is [facility]. After the patient goes through rehab, she states she will DC to her mother's home. Patient denies hospitalization within the past 30 days. 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 Transportation at time of discharge: Facility or brother. CM will follow and assist with further DC plans PRN. External Providers External Provider: OTHER-OTHER Next Contact Date: Service Request Date: Service Type: Resolution: Reviewer: Comments: Coverage Notice Reviewer: [id number] Niko Landa Notice Issued Date-Time: 11/21/2019 17:38 Notice Type: Patient Choice Letter Notice Delivered To: Patient Relationship to Patient: Self Auto Radiator Mechanic Name: Anderson Retana Delivery Method: HAND - Hand Delivered April Days: Prior Verbal Notification: Recipient Understood Notice: Recipient Signature: Yes Med Rec Note Co-signed by Attending: Coverage Notice Comment[facility] Reviewer: [id number] Niko Landa Notice Issued Date-Time: 11/23/2019 16:31 Notice Type: Patient Choice Letter Notice Delivered To: Patient Relationship to Patient: Self Auto Radiator Mechanic Name: Anderson Retana Delivery Method: HAND - Hand Delivered April Days: Prior Verbal Notification: Recipient Understood Notice: Yes Recipient Signature: Yes Med Rec Note Co-signed by Attending: Coverage Notice Comment: [facility], [facility] IV. Reviewer: [id number] Niko Landa Notice Issued Date-Time: 11/24/2019 9:02 Notice Type: Patient Choice Letter Notice Delivered To: Patient Relationship to Patient: Self Auto Radiator Mechanic Name: Anderson Retana Delivery Method: HAND - Hand Delivered April Days: Prior Verbal Notification: Recipient Understood Notice: Yes Recipient Signature: Yes Med Rec Note Co-signed by Attending: Coverage Notice Comment: [facility] Last DP export: 11/24/19 12:49 p Patient Name: ANDERSON RETANA Page [id number] at 1545 All edits/amendments must be made on the electronic document DICTATION DATE: 11/24/19 1544 IN STORE MARKETER: SON 11/24/19 1544 RPT#: [id number] DC DATE: STATUS: ADM IN [facility] [address] [place] [address] END OF REPORT
[2019-11-24 20:00] VITALS: BP 109/57
--- NOTE | 2019-11-24 23:14 | NUR ---
ASSESSED AT THE BEGINNING OF THE SHIFT. PT IS ALERT AND ORIENTED, ABLE TO VERBALZIE NEEDS. SHE HAS BEEN QUIET IN BED WITH NO COMPLAINTS. WHEN MEDS WERE GIVEN SHE TURNED DOWN HER SERQUEL AND THE SUPPITORY SHE DID NOT TAKE EARLIER IN THE DAY. HER CPM WAS TAKEN OFF AT 2014 AND SHE IS GETTING UP TO THE BATHROOM WITH ASSIST TO VOID.
[2019-11-25] VITALS: BP 119/60
[2019-11-25 04:00] VITALS: BP 111/50
--- NOTE | 2019-11-25 06:39 | NUR ---
PT RESTED DURING THE NIGHT. SHE WAS ASSISTED UP TO THE BATHROOM WHEN NEEDED. THIS MORNING SHE RECEIVED PAIN MEDS ORDERED AND THEN WAS PLACED ON THE CPM.
--- NOTE | 2019-11-25 07:30 | NUR ---
AWAKE AND ALERT. ORIENTED X3. NO C/O AT THIS TIME. CPM IN PLACE TO LEFT TKA. LUNGS ARE CLEAR BILATERALLY, NO COUGH NOTED. SKIN IS INTACT WITHOUT REDNESS EXCEPT INCISION TO LEFT KNEE WHICH HAS A DRY INTACT DRESSING IN PLACE. NO IV ACCESS AT THIS TIME. DENIES NEEDS.
[2019-11-25 07:33] LABS: BASOPHILS 0.2 % (0-2); EOSINOPHILS 3.9 % (0-7); HEMATOCRIT 32.7 % (36.0-48.0); HEMOGLOBIN 10.6 g/dL (12-16); IMMATURE GRANULOCYTES 0.2 % (0-5); LYMPHOCYTES 35.2 % (15-50); MCH 30.8 pg (26.0-34.0); MCHC 32.4 g/dL (31.0-37.0); MCV 95.1 fL (80.0-100.0); MEAN PLATELET VOLUME 8.9 fL (7.4-10.4); MONOCYTES 9.4 % (2-11); NEUTROPHILS 51.1 % (40-80); PLATELET COUNT 267 10x3/uL (130-400); RBC 3.44 10x6/uL (4.00-5.40); RDW 13.5 % (11.5-14.5)
[2019-11-25 07:40] LABS: ANION GAP 11.9 mmol/L (8-16); CARBON DIOXIDE 29.2 mmol/L (21.0-32.0); MAGNESIUM - SERUM 2.1 mg/dL (1.8-2.4); POTASSIUM - SERUM 4.1 mmol/L (3.5-5.1)
[2019-11-25 08:10] VITALS: BP 108/55
--- NOTE | 2019-11-25 09:30 | NUR ---
ATE MOST OF BREAKFAST. TOOK AM MEDS WITHOUT DIFFICULTY. DENIES NEED FOR PAIN MEDS AT THIS TIME.
--- NOTE | 2019-11-25 10:30 | NUR ---
AMBULATED IN HALLWAY WITH PT AND RW. DID WELL. DENIES NEEDS.
[2019-11-25 12:17] VITALS: BP 102/54
--- NOTE | 2019-11-25 12:30 | NUR ---
ATE MOST OF LUNCH. NO CHANGES NOTED.
--- NOTE | 2019-11-25 13:30 | NUR ---
AMBULATED IN HALLWAY WITH PT USING RW. DENIES NEEDS.
[2019-11-25 21:18] VITALS: BP 115/67
[2019-11-26 05:08] VITALS: BP 104/51
[2019-11-26 07:04] LABS: BASOPHILS 0.3 % (0-2); EOSINOPHILS 3.8 % (0-7); HEMOGLOBIN 9.6 g/dL (12-16); IMMATURE GRANULOCYTES 0.4 % (0-5); LYMPHOCYTES 34.8 % (15-50); MCH 30.3 pg (26.0-34.0); MCV 94.6 fL (80.0-100.0); MEAN PLATELET VOLUME 8.7 fL (7.4-10.4); MONOCYTES 9.1 % (2-11); NEUTROPHILS 51.6 % (40-80); RBC 3.17 10x6/uL (4.00-5.40); RDW 13.3 % (11.5-14.5); WBC 10.1 10x3/uL (4.8-10.8)
[2019-11-26 07:05] LABS: PLATELET COUNT 323 10x3/uL (130-400)
[2019-11-26 07:20] LABS: ANION GAP 11.7 mmol/L (8-16); CALCIUM 8.9 mg/dL (8.5-10.1); CARBON DIOXIDE 27.9 mmol/L (21.0-32.0); POTASSIUM - SERUM 3.6 mmol/L (3.5-5.1)
--- NOTE | 2019-11-26 07:50 | NUR ---
AWAKE AND ALERT. ORIENTED X3. LUNGS ARE CLEAR BILATERALLY, NO COUGH NOTED. SKIN IS INTACT WITHOUT REDNESS EXCEPT INCISION TO LEFT KNEE WHICH HAS A DRY INTACT DRESSING IN PLACE. NO IV AT THIS TIME. DENIES NEEDS.
[2019-11-26 08:22] VITALS: BP 125/65
--- NOTE | 2019-11-26 09:38 | NUR ---
ATE MOST OF BREAKFAST. TOOK AM MEDS WITHOUT DIFFICULTY. REQUESTED AND GIVEN 10MG OF OXY WITH 50MG OF VISTARIL PO FOR C/O LEFT KNEE PAIN LEVEL 8. PLACED ON CPM AT THIS TIME PER PATIENT REQUEST.
--- NOTE | 2019-11-26 10:00 | NUR ---
CPM PLACED TO LEFT KNEE. DENIES NEEDS. REQUESTED AND GIVEN 10MG OXY WITH 50MG VISTIRIL PO FOR C/O LEFT KNEE PAIN LEVEL 8. WILL MONITOR.
[2019-11-26 12:07] VITALS: BP 107/53
--- NOTE | 2019-11-26 12:30 | NUR ---
LUNCH SERVED IN ROOM. NO C/O AT THIS TIME. DENIES NEEDS.
--- NOTE | 2019-11-26 15:00 | NUR ---
RESTING QUIETLY IN BED. DENIES NEEDS.
--- NOTE | 2019-11-26 17:30 | NUR ---
ATE ABOUT 25% OF SUPPER. PLACED ON CPM WHEN FINISHED EATING. DENIES NEEDS. NO CHANGES NOTED.
[2019-11-26 17:48] VITALS: BP 115/70
--- NOTE | 2019-11-26 19:40 | NUR ---
PATIENT RESTING IN BED WITH NO S/S OF DISTRESS AT THIS TIME. PATIENT DENIES NEEDS AT THIS TIME. BED IN LOWEST POSITION AND CALL LIGHT WITHIN REACH. ENCOURAGED THE PATIENT TO CALL IF SHE HAS NEEDS. WILL CONTINUE TO MONITOR.
--- NOTE | 2019-11-26 20:41 | NUR ---
REMOVED PATIENT FROM CPM MACHINE. ADMINISTERED MEDS PER ORDERS. ASSISTED PATIENT TO AND FROM RESTROOM WITHOUT DIFFICULTY. PATIENT DENIES OTHER NEEDS. WILL CONTINUE TO MONITOR.
[2019-11-26 21:48] VITALS: BP 117/68
[2019-11-27 01:34] VITALS: BP 117/49
--- NOTE | 2019-11-27 05:00 | NUR ---
PLACED PATIENT ON CPM TO LEFT KNEE
[2019-11-27 05:13] VITALS: BP 90/54
[2019-11-27 06:09] LABS: BASOPHILS 0.4 % (0-2); EOSINOPHILS 4.9 % (0-7); HEMATOCRIT 30.2 % (36.0-48.0); HEMOGLOBIN 9.8 g/dL (12-16); IMMATURE GRANULOCYTES 0.2 % (0-5); LYMPHOCYTES 32.9 % (15-50); MCH 30.4 pg (26.0-34.0); MCHC 32.5 g/dL (31.0-37.0); MCV 93.8 fL (80.0-100.0); MEAN PLATELET VOLUME 8.2 fL (7.4-10.4); MONOCYTES 11.6 % (2-11); PLATELET COUNT 296 10x3/uL (130-400); RBC 3.22 10x6/uL (4.00-5.40); RDW 13.4 % (11.5-14.5); WBC 8.6 10x3/uL (4.8-10.8)
[2019-11-27 06:28] LABS: ANION GAP 10.2 mmol/L (8-16); CALCIUM 8.8 mg/dL (8.5-10.1); CARBON DIOXIDE 28.6 mmol/L (21.0-32.0); CREATININE - SERUM 0.9 mg/dL (0.6-1.3); POTASSIUM - SERUM 3.8 mmol/L (3.5-5.1)
[2019-11-27 07:59] VITALS: BP 108/54
[2019-11-27] MEDS ORDERED: ELIQUIS2.5 MG PO (08:08)
[2019-11-27] MEDS ORDERED: oxyCODONE IR PO (08:09)
--- NOTE | 2019-11-27 08:50 | MORECARE ---
CASE MANAGEMENT DISCHARGE SUMMARY PATIENT: ANDERSON RETANA UNIT: [id number] ADM DATE: 11/21/19 AGE: 59 : 64 SEX: F ROOM/BED: D.2240 AUTHOR: WILLIAM,DOC PHYSICIAN: REFERRING PHYSICIAN: SAMANTHA SALMON DO DATE OF SERVICE: 11/27/19 Discharge Plan Patient Name: ANDERSON RETANA Facility: [facility]:[place] : 1960 Planned Disposition: Inpatient Rehab Anticipated Discharge Date: 11/24/19 Discharge Date: Expected LOS: 3 Initial Reviewer: [id number] Initial Review Date: 11/21/2019 Generated: 11/27/19 9:49 am DCP- Discharge Planning Updated by [email or web address]: Milagros Landa on 11/24/19 2:[address] ROWAN approval for 60 days received and faxed to Katelin. ROWAN completed and faxed. Await recommendation. Ghada with HH made aware of change of plans. Patient request that information be sent for a SNF bed. CM contacted Katelin Solorzano, who states that [facility] accepts patient's insurance. Faxed required information to Katelin. DCP- Discharge Planning Updated by [email or web address]: Milagros Landa on 11/23/19 4:[address] Patient states she will go to her mother's home @[id number] [facility] [place] [address]. Home phone [phone], 2 nd cell #[phone]. Patient has been denied Rehab, per her insurance. RANJITH met with patient, explained the denial, provided the list of HH/SNF agencies. Patient's [facility] choice is [facility]. CM contacted Ghada, faxed required information. DCP- Discharge Planning Updated by [id number]: Milagros Landa on 11/22/19 2:[address] 1540: Faxed additional PT/OT to [facility] [employer]. 1221: Toyin with [employer] called and requested updated information. CM faxed to Toyin as requested. Late entry: RANJITH faxed information to Shanel with [facility] 11/20. Contacted Shanel today to verify receipt. I will fax PT/OT when available. KELLI signed per patient. DCP- Discharge Planning Updated by [email or web address]: Milagros Landa on 11/21/19 4:[address] DC Plan: [facility]. CM met with patient to discuss initial discharge planning. Patient is in agreement to proceed, with her brother present. Patient reports that she lives at home independently, with her family. Patient states there are several grandchildren at her home, feels it would not be a safe DC plan to return there and would like to go into rehab. Patient is alert/oriented. PCP: Dr. Gil. Pharmacy: [facility]. HHS: [facility]. DME: To be delivered: TAMIA, Salvador, LUBNA. Patient gives permission to speak with family members/care givers. Emergency contact: Harshad Retana (brother), . 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 CM discussed the availability of HH, Rehab, SNF, OP Therapy, DME services. Patient states she needs rehab, but not an intensive one. Patient's choice, with her brother's assist, is [facility]. After the patient goes through rehab, she states she will DC to her mother's home. Patient denies hospitalization within the past 30 days. Patient denies the use of community resources HOUSE COORDINATOR. Transportation at time of discharge: Facility or brother. CM will follow and assist with further DC plans PRN. External Providers External Provider: [facility] Next Contact Date: Service Request Date: Service Type: Resolution: Reviewer: Comments: Coverage Notice Reviewer: [id number] Niko Landa Notice Issued Date-Time: 11/21/2019 17:38 Notice Type: Patient Choice Letter Notice Delivered To: Patient Relationship to Patient: Self Legal Instructor Name: Anderson Retana Delivery Method: HAND - Hand Delivered April Days: Prior Verbal Notification: Recipient Understood Notice: Recipient Signature: Yes Med Rec Note Co-signed by Attending: Coverage Notice Comment[facility] Review[facility]: [id number] Niko Landa Notice Issued Date-Time: 11/23/2019 16:31 Notice Type: Patient Choice Letter Notice Delivered To: Patient Relationship to Patient: Self Legal Instructor Name: Anderson Retana Delivery Method: HAND - Hand Delivered April Days: Prior Verbal Notification: Recipient Understood Notice: Yes Recipient Signature: Yes Med Rec Note Co-signed by Attending: Coverage Notice Comment: [facility]. Reviewer: [id number] Niko Landa Notice Issued Date-Time: 11/24/2019 9:02 Notice Type: Patient Choice Letter Notice Delivered To: Patient Relationship to Patient: Self Legal Instructor Name: Anderson Retana Delivery Method: HAND - Hand Delivered April Days: Prior Verbal Notification: Recipient Understood Notice: Yes Recipient Signature: Yes Med Rec Note Co-signed by Attending: Coverage Notice Comment: Dawsno Ch[facility] Last DP export: 11/24/19 2:44 p Patient Name: ANDERSON RETANA Page [id number] at 0850 All edits/amendments must be made on the electronic document DICTATION DATE: 11/27/1947 PMP PROJECT MANAGER: SON 11/27/1947 RPT#: [id number] DC DATE: STATUS: ADM IN [facility] [address] [place] [address] END OF REPORT
--- NOTE | 2019-11-27 09:05 | MORECARE ---
CASE MANAGEMENT DISCHARGE SUMMARY PATIENT: ANDERSON RETANA UNIT: [id number] ADM DATE: 11/21/19 AGE: 59 : 64 SEX: F ROOM/BED: D.2240 AUTHOR: WILLIAM,DOC PHYSICIAN: REFERRING PHYSICIAN: SAMANTHA SALMON DO DATE OF SERVICE: 11/27/19 Discharge Plan Patient Name: ANDERSON RETANA Facility: [facility]:[place] : 1960 Planned Disposition: Inpatient Rehab Anticipated Discharge Date: 11/24/19 Discharge Date: Expected LOS: 3 Initial Reviewer: [email or web address] Initial Review Date: 11/21/2019 Generated: 11/27/19 10:04 am Comments DCP- Discharge Planning Updated by [email or web address]: Milagros Landa on 11/27/19 7:[address] 0802: CM was contacted by Bibi Solorzano, with acceptance/insurance authorization for [facility] Bibi states she will contact the facility and make transportation arrangements. Patient will dc to a Medicare Skilled bed. RANJITH notified Brianda KASPER of same. DCP- Discharge Planning Updated by [email or web address]: Milagros Landa on 11/24/19 2:[address] ROWAN approval for 60 days received and faxed to Katelin. ROWAN completed and faxed. Await recommendation. Ghada with HH made aware of change of plans. Patient request that information be sent for a SNF bed. RANJITH contacted Katelin Solorzano, who states that [facility] accepts patient's insurance. Faxed required information to Katelin. DCP- Discharge Planning Updated by [id number]: Milagros Landa on 11/23/19 4:[address] Patient states she [address] her [id number] [address] [place] [address]. Home phone [phone], 2 nd cell #[phone]. Patient has been denied Rehab, per her insurance. RANJITH met with patient, explained the denial, provided the list of HH/SNF agencies. [facility] choice is [facility]. RANJITH contacted Ghada, faxed required information. DCP- Discharge Planning Updated by [email or web address]: Milagros Landa on 11/22/19 2:[address] 1540: Faxed additional PT[facility]OT to [facility]. 1221: Toyin with [facility] called and requested updated information. CM faxed to Toyin as requested. Late entry: RANJITH faxed information to Shanel with [facility] 11/20. Contacted Shanel today to verify receipt. I will fax PT/OT when available. KELLI signed per patient. DCP- Discharge Planning Updated by [email or web address]: Milagros Landa on 11/21/19 4:[address] DC Plan: [facility]. CM met with patient to discuss initial discharge planning. Patient is in agreement to proceed, with her brother present. Patient reports that she lives at home independently, with her family. Patient states there are several grandchildren at her home, feels it would not be a safe DC plan to return there and would like to go into rehab. Patient is alert/oriented. PCP: Dr. Gil. Pharmacy: [facility]. HHS: [facility]. DME: To be delivered: TAMIA, Salvador, [facility]. Patient gives permission to speak with family members/care givers. Emergency contact: Harshad Retana (brother), . 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 CM discussed the availability of HH, Rehab, SNF, OP Therapy, DME services. Patient states she needs rehab, but not an intensive one. Patient's choice, with her brother's assist, is [facility]. After the patient goes through rehab, she states she will DC to her mother's home. Patient denies hospitalization within the past 30 days. Patient denies the use of community resources PIANO ASSEMBLER. Transportation at time of discharge: Facility or brother. CM will follow and assist with further DC plans PRN. Coverage Notice Reviewer: [id number] - Milagros Landa Notice Issued Date-Time: 11/24/2019 9:02 Notice Type: Patient Choice Letter Notice Delivered To: Patient Relationship to Patient: Self Relationship Manager Name: Anderson Retana Delivery Method: HAND - Hand Delivered April Days: Prior Verbal Notification: Recipient Understood Notice: Yes Recipient Signature: Yes Med Rec Note Co-signed by Attending: Coverage Notice Comment: [facility] Reviewer: [id number] Niko Landa Notice Issued Date-Time: 11/23/2019 16:31 Notice Type: Patient Choice Letter Notice Delivered To: Patient Relationship to Patient: Self Relationship Manager Name: Anderson Retana Delivery Method: HAND - Hand Delivered April Days: Prior Verbal Notification: Recipient Understood Notice: Yes Recipient Signature: Yes Med Rec Note Co-signed by Attending: Coverage Notice Comment: [facility] IV. Reviewer: [id number] Niko Landa Notice Issued Date-Time: 11/21/2019 17:38 Notice Type: Patient Choice Letter Notice Delivered To: Patient Relationship to Patient: Self Relationship Manager Name: Anderson Retana Delivery Method: HAND - Hand Delivered April Days: Prior Verbal Notification: Recipient Understood Notice: Recipient Signature: Yes Med Rec Note Co-signed by Attending: Coverage Notice Comment[facility] Last DP export: 11/27/19 7:50 a Patient Name: ANDERSON RETANA Page 44876 at 0905 All edits/amendments must be made on the electronic document DICTATION DATE: 11/27/19904 PERSONAL FINANCIAL REPRESENTATIVE: SON 11/27/19904 RPT#: [id number] DC DATE: STATUS: ADM IN [facility] [address] [place] [address] END OF REPORT
[2019-11-27] MEDS ORDERED: NICODERM CQ1 EAC3 TOPICAL (10:12)
--- NOTE | 2019-11-27 11:01 | NUR ---
CALLED REPORT TO ANA SANDERSON AT [facility] [phone] CHANGED DRESSING ON LEFT KNEE. INCISION WELL APPROXIMATED, NO ACTIVE DRAINAGE NOTED. ZIPPER CLOSURE INTACT, INCISION CLEAN WITH SCANT AMOUNT OF DRY DRAINAGE PRESENT. MEPILEX AG AND ALIA WRAP PLACED. TOLERATED WELL NEEDS ANTICIPATED AND MET. WILL CONTINUE TO MONITOR
--- NOTE | 2019-11-27 11:05 | MORECARE ---
CASE MANAGEMENT DISCHARGE SUMMARY PATIENT: ANDERSON RETANA UNIT: [id number] ADM DATE: 11/21/19 AGE: 59 : 64 SEX: F ROOM/BED: D.2240 AUTHOR: WILLIAM,DOC PHYSICIAN: REFERRING PHYSICIAN: SAMANTHA SALMON DO DATE OF SERVICE: 11/27/19 Discharge Plan Patient Name: ANDERSON RETANA Facility: [facility]:[place] : 1960 Planned Disposition: Inpatient Rehab Anticipated Discharge Date: 11/24/19 Discharge Date: Expected LOS: 3 Initial Reviewer: [id number] Initial Review Date: 11/21/2019 Generated: 11/27/19 12:05 pm Comments DCP- Discharge Planning Updated by [id number]: Brianda Lyons on 11/27/19 9:[address] Patient Name: ANDERSON RETANA Admission Status: Elective Accout number: [id number] Admission Date: 11-21-2019 : 1960 Admission Diagnosis:UNILATERAL PRIMARY OSTEOARTHRITIS, LEFT KNEE Attending: SAMANTHA SALMON Current LOS: 6 Anticipated DC Date: 11-24-2019 Planned Disposition: Inpatient Rehab Primary Insurance: [facility] [employer]IC[employer]UT[employer] Discharge Planning Comments: IMM EXPLAINED, SIGNED AND COPY GIVEN TO PATIENT AND PLACED ON CHART. [facility] TO PICK HER UP FOR TRANSPORT IN APPROX ONE HOUR. CM TO FOLLOW AND ASSIST NEEDED. Peripatologist: Brianda Lyons DCP- Discharge Planning Updated by [id number]: Milagros Landa on 11/27/19 7:[address] 0802: RANJITH was contacted by Bibi Solorzano, with acceptance/insurance authorization for [facility]. Bibi states she will contact the facility and make transportation arrangements. Patient will dc to a Medicare Skilled bed. RANJITH notified Brianda KASPER of same. DCP- Discharge Planning Updated by [id number]: Milagros Landa on 11/24/19 2:[address] ROWAN approval for 60 days received and faxed to Katelin. ROWAN completed and faxed. Await recommendation. Ghada butler made aware of change of plans. Patient request that information be sent for a SNF bed. RANJITH contacted Katelin Solorzano, who states that [facility] accepts patient's insurance. Faxed required information to Katelin. DCP- Discharge Planning Updated by [id number]: Milagros Syeda on 11/23/19 4:[address] Patient states she will go to her mother's home @[address] [place] [address]. Home phone [phone], 2 nd cell #[phone]. Patient has been denied Rehab, per her insurance. CM met with patient, explained the denial, provided the list of HH/SNF agencies. [facility] choice is [facility]. CM contacted Ghada, faxed required information. DCP- Discharge Planning Updated by [id number]: Milagrosfely Landa on 11/22/19 2:[address] 1540: Faxed additional PT/OT to [facility] [employer]. 1221: Toyin with [employer] called and requested updated information. CM faxed to Toyin as requested. Late entry: RANJITH faxed information to Shanel with [employer] 11/20. Contacted Shanel today to verify receipt. I will fax PT/OT when available. KELLI signed per patient. DCP- Discharge Planning Updated by [id number]: Milagros Landa on 11/21/19 4:[address] DC Plan: [facility]. CM met with patient to discuss initial discharge planning. Patient is in agreement to proceed, with her brother present. Patient reports that she lives at home independently, with her family. Patient states there are several grandchildren at her home, feels it would not be a safe DC plan to return there and would like to go into rehab. Patient is alert/oriented. PCP: Dr. Gil. Pharmacy: [facility]. HHS: Declines. DME: To be delivered: Salvador CANTRELL, BSC. Patient gives permission to speak with family members/care givers. Emergency contact: Harshad Retana (brother), . 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 CM discussed the availability of HH, Rehab, SNF, OP Therapy, DME services. Patient states she needs rehab, but not an intensive one. Patient's choice, with her brother's assist, is [facility]. After the patient goes through rehab, she states she will DC to her mother's home. Patient denies hospitalization within the past 30 days. Patient denies the use of community resources SURGICAL ELASTIC KNITTER HAND FRAME. Transportation at time of discharge: Facility or brother. CM will follow and assist with further DC plans PRN. Coverage Notice Reviewer: [id number] Niko Landa Notice Issued Date-Time: 11/21/2019 17:38 Notice Type: Patient Choice Letter Notice Delivered To: Patient Relationship to Patient: Self Radio Sales Account Executive Name: Anderson Retana Delivery Method: HAND - Hand Delivered April Days: Prior Verbal Notification: Recipient Understood Notice: Recipient Signature: Yes Med Rec Note Co-signed by Attending: Coverage Notice Comment: Patient choice for [facility] Reviewer: [id number] Niko Landa Notice Issued Date-Time: 11/23/2019 16:31 Notice Type: Patient Choice Letter Notice Delivered To: Patient Relationship to Patient: Self Radio Sales Account Executive Name: Anderson Retana Delivery Method: HAND - Hand Delivered April Days: Prior Verbal Notification: Recipient Understood Notice: Yes Recipient Signature: Yes Med Rec Note Co-signed by Attending: Coverage Notice Comment: [facility]. Reviewer: [id number] Niko Landa Notice Issued Date-Time: 11/24/2019 9:02 Notice Type: Patient Choice Letter Notice Delivered To: Patient Relationship to Patient: Self Radio Sales Account Executive Name: Anderson Retana Delivery Method: HAND - Hand Delivered April Days: Prior Verbal Notification: Recipient Understood Notice: Yes Recipient Signature: Yes Med Rec Note Co-signed by Attending: Coverage Notice Comment: [facility] Reviewer: [id number] - Brianda Lyons Notice Issued Date-Time: 11/27/2019 10:56 Notice Type: IM Discharge Notice Notice Delivered To: Patient Relationship to Patient: Radio Sales Account Executive Name: Delivery Method: HAND - Hand Delivered April Days: Prior Verbal Notification: Recipient Understood Notice: Yes Recipient Signature: Yes Med Rec Note Co-signed by Attending: Coverage Notice Comment: Last DP export: 11/27/19 8:05 a Patient Name: ANDERSON RETANA Page [id number] at 1105 All edits/amendments must be made on the electronic document DICTATION DATE: 11/27/19 1105 ELECTRON BEAM MACHINE WELDER SETTER: DM 11/27/19 1105 RPT#: [id number] DC DATE: STATUS: ADM IN [facility] [address] [place] [address] END OF REPORT
[2019-11-27 11:49] VITALS: BP 111/55
--- NOTE | 2019-11-27 14:28 | MORECARE ---
CASE MANAGEMENT DISCHARGE SUMMARY PATIENT: ANDERSON RETANA UNIT: [id number] ADM DATE: 11/21/19 AGE: 59 : 64 SEX: F ROOM/BED: D.2240 AUTHOR: WILLIAM,DOC PHYSICIAN: REFERRING PHYSICIAN: SAMANTHA SALMON DO DATE OF SERVICE: 11/27/19 Discharge Plan Patient Name: ANDERSON RETANA Facility: [facility]:[place] : 1960 Planned Disposition: Inpatient Rehab Anticipated Discharge Date: 11/24/19 Discharge Date: 11/27/2019 Expected LOS: 3 Initial Reviewer: [id number] Initial Review Date: 11/21/2019 Generated: 11/27/19 3:27 pm Comments DCP- Discharge Planning Updated by [id number]: Brianda Lyons on 11/27/19 9:[address] Patient Name: ANDERSON RETANA Admission Status: Elective Accout number: [id number] Admission Date: 11-21-2019 : 1960 Admission Diagnosis:UNILATERAL PRIMARY OSTEOARTHRITIS, LEFT KNEE Attending: SAMANTHA SALMON Current LOS: 6 Anticipated DC Date: 11-24-2019 Planned Disposition: Inpatient Rehab Primary Insurance: [facility] MEDICARE SOLUTIONS Discharge Planning Comments: IMM EXPLAINED, SIGNED AND COPY GIVEN TO PATIENT AND PLACED ON CHART. [facility] TO PICK HER UP FOR TRANSPORT IN APPROX ONE HOUR. CM TO FOLLOW AND ASSIST NEEDED. 3D Specialist: Brianda Lyons DCP- Discharge Planning Updated by [id number]: Milagros Landa on 11/27/19 7:[address] 0802: RANJITH was contacted by Bibi Solorzano, with acceptance/insurance authorization for [facility]. Bibi states she will contact the facility and make transportation arrangements. Patient will dc to a Medicare Skilled bed. RANJITH notified Brianda KASPER of same. DCP- Discharge Planning Updated by [email or web address]: Milagros Landa on 11/24/19 2:[address] ROWAN approval for 60 days received and faxed to Katelin. ROWAN completed and faxed. Await recommendation. Ghada butler made aware of change of plans. Patient request that information be sent for a SNF bed. RANJITH contacted Katelin Solorzano, who states that [facility] accepts patient's insurance. Faxed required information to Katelin. DCP- Discharge Planning Updated by [id number]: Milagros Syeda on 11/23/19 4:[address] Patient states she will go to her mother's home @[address] [place] [address]. Home phone [phone], 2 nd cell #[phone]. Patient has been denied Rehab, per her insurance. CM met with patient, explained the denial, provided the list of HH/SNF agencies. Patient's first choice is [facility]. CM contacted Ghada, faxed required information. DCP- Discharge Planning Updated by [id number]: Milagros Landa on 11/22/19 2:[address] 1540: Faxed additional PT/OT to [facility]. 1221: Toyin with [employer] called and requested updated information. CM faxed to Toyin as requested. Late entry: RANJITH faxed information to Shanel with [employer] 11/20. Contacted Shanel today to verify receipt. I will fax PT/OT when available. KELLI signed per patient. DCP- Discharge Planning Updated by [id number]: Milagros Landa on 11/21/19 4:[address] DC Plan: [facility]. CM met with patient to discuss initial discharge planning. Patient is in agreement to proceed, with her brother present. Patient reports that she lives at home independently, with her family. Patient states there are several grandchildren at her home, feels it would not be a safe DC plan to return there and would like to go into rehab. Patient is alert/oriented. PCP: Dr. Gil. Pharmacy: [facility]. HHS: [facility]. DME: To be delivered: Salvador CANTRELL, LUBNA. Patient gives permission to speak with family members/care givers. Emergency contact: Harshad Retana (brother), . 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 CM discussed the availability of HH, Rehab, SNF, OP Therapy, DME services. Patient states she needs rehab, but not an intensive one. Patient's choice, with her brother's assist, is [facility]. After the patient goes through rehab, she states she will DC to her mother's home. Patient denies hospitalization within the past 30 days. 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 Transportation at time of discharge: Facility or brother. CM will follow and assist with further DC plans PRN. Coverage Notice Reviewer: [id number] Niko Landa Notice Issued Date-Time: 11/21/2019 17:38 Notice Type: Patient Choice Letter Notice Delivered To: Patient Relationship to Patient: Self Counter Waiter Name: Anderson Retana Delivery Method: HAND - Hand Delivered April Days: Prior Verbal Notification: Recipient Understood Notice: Recipient Signature: Yes Med Rec Note Co-signed by Attending: Coverage Notice Comment: [facility] choice for [facility] Reviewer: [id number] Niko Landa Notice Issued Date-Time: 11/23/2019 16:31 Notice Type: Patient Choice Letter Notice Delivered To: Patient Relationship to Patient: Self Counter Waiter Name: Anderson Retana Delivery Method: HAND - Hand Delivered April Days: Prior Verbal Notification: Recipient Understood Notice: Yes Recipient Signature: Yes Med Rec Note Co-signed by Attending: Coverage Notice Comment: [facility]. Reviewer: [id number] Niko Landa Notice Issued Date-Time: 11/24/2019 9:02 Notice Type: Patient Choice Letter Notice Delivered To: Patient Relationship to Patient: Self Counter Waiter Name: Anderson Retana Delivery Method: HAND - Hand Delivered April Days: Prior Verbal Notification: Recipient Understood Notice: Yes Recipient Signature: Yes Med Rec Note Co-signed by Attending: Coverage Notice Comment: [facility] Reviewer: [id number] Niko Lyons Notice Issued Date-Time: 11/27/2019 10:56 Notice Type: IM Discharge Notice Notice Delivered To: Patient Relationship to Patient: Counter Waiter Name: Delivery Method: HAND - Hand Delivered April Days: Prior Verbal Notification: Recipient Understood Notice: Yes Recipient Signature: Yes Med Rec Note Co-signed by Attending: Coverage Notice Comment: Last DP export: 11/27/19 10:05 a Patient Name: ANDERSON RETANA Page [id number] at 1428 All edits/amendments must be made on the electronic document DICTATION DATE: 11/27/191426 LABORATORY SAMPLER: SON 11/27/19 1427 RPT#: [id number] DC DATE:11/27/19 STATUS: DIS IN [facility] [address] [address] [address] [place] [address] END OF REPORT
== END 2019-11-27 12:00 | DRG 470 ==
LOC: D.SDCHOLD 11-15 10:00 → D.M3 11-21 12:44 → D.SDCHOLD 11-21 13:45 → D.M3 11-21 13:53 → D.SDCHOLD 11-21 14:10 → D.MS 11-25 15:55
PROVIDERS: Family Medicine; ADMIT Orthopaedic Surgery; ATTEND Orthopaedic Surgery
PROC: 0SRD0J9 Replacement of Left Knee Joint with Synthetic Substitute, Cemented, Open Approach (ICD-10-PCS; principal; 2019-11-21 14:45)
DX: M17.12 Unilateral primary osteoarthritis, left knee (principal); Z72.0 Tobacco use; J43.9 Emphysema, unspecified; I10 Essential (primary) hypertension; F41.9 Anxiety disorder, unspecified; F32.9 Major depressive disorder, single episode, unspecified; K21.9 Gastro-esophageal reflux disease without esophagitis; K59.00 Constipation, unspecified; Z86.718 Personal history of other venous thrombosis and embolism